=== PATIENT | male | born 1985 | race African-American/Black ===

== ENCOUNTER 2020-05-04 11:22 | Inpatient (IN) | payer OTHER ==
[2020-05-04 11:56] LABS: #Basophils 0.1 thou/uL (0.0-0.2); #Lymphocytes 2.2 thou/uL (1.20-3.40); #Monocytes 0.7 thou/uL (0.11-0.59); #Neutrophils 5.4 thou/uL (1.40-6.50); %Basophils 0.7 % (0.0-1.0); %Eosinophils 0.3 % (0.0-10.0); %Lymphocytes 26.4 % (21.0-51.0); %Monocytes 8.1 % (0.0-10.0); %Neutrophils 64.5 % (42.0-75.0); Hemoglobin 16.6 g/dL (14.0-18.0); Mean Corpuscular Volume 88.7 fL (78.0-98.0); Mean Platelet Volume 6.5 fL (7.4-10.4); Platelet Count 362 thou/uL (130-400); RBC Distribution Width 10.7 % (11.5-14.5); Red Blood Cell (RBC) Count 5.18 mill/uL (4.70-6.10); White Blood Cell (WBC) Count 8.4 thou/uL (4.8-10.8)
[2020-05-04] MEDS ORDERED: Magnesium 2 GM/50 ML BAG (IN WATER) ONE (12:17)
[2020-05-04 12:34] LABS: Actual Bicarbonate (HCO3v) 28 mEq/L (22-28); Analyzer IN Cardio ER; Base Excess 4.4 mEq/L (-2.0 to +3.0); Calcium, Ionized (venous) 1.16 mmol/L (1.16-1.32); Chloride (VBG) 82 mmol/L (98-106); Hemoglobin (Hb) 16.9 g/dL (13.2-17.3); Potassium (VBG) 2.88 mmol/L (3.70-5.30); Sodium 122.4 mmol/L (133-146); pH (venous) 7.49 (7.32-7.43)
[2020-05-04 12:35] LABS: ALT (SGPT) 17 U/L (8-55); AST (SGOT) 14 U/L (5-34); Albumin 4.8 g/dL (3.5-5.0); Alkaline Phosphatase 86 U/L (40-110); Anion Gap 19 mmol/L (10-20); BUN (Urea Nitrogen) 16 mg/dL (8.9-20.6); Bilirubin, Total 0.9 mg/dL (0.2-1.2); Calc. Creatinine Clearance 0 mL/min (70-130); Calcium 10.3 mg/dL (7.8-10.44); Carbon Dioxide 25 mmol/L (22-29); Chloride 81 mmol/L (98-107); Globulin 3.2 g/dL (2.4-3.5); Glucose 198 mg/dL (70-105); Lipase 99 U/L (8-78); Sodium 122 mmol/L (136-145)
[2020-05-04] MEDS ORDERED: Potassium Chloride 20 MEQ/100 ML PREMIX BAG ONE (12:58)
[2020-05-04] MEDS ORDERED: Potassium Chloride 20 MEQ TAB ONE (12:58)
[2020-05-04] MEDS ORDERED: Dextrose 5% in Water 1,000 ML IV PRN (13:45)
[2020-05-04] MEDS ORDERED: Dextrose 50% Abboject 50 ML SYRINGE SLOW IVP PRN (13:45)
[2020-05-04] MEDS ORDERED: Insulin Regular 300 UNITS/3 ML VIAL SC PRN (13:45)
[2020-05-04] MEDS ORDERED: diphenhydrAMINE 12.5 MG/5 ML UDCUP PO PRN (14:43)
[2020-05-04] MEDS ORDERED: Sodium Chloride 0.9% 1,000 ML IV SCH ×5 (14:45→22:30)
[2020-05-04 15:18] LABS: Anion Gap 18 mmol/L (10-20); BUN (Urea Nitrogen) 14 mg/dL (8.9-20.6); Calc. Creatinine Clearance 0 mL/min (70-130); Calcium 9.1 mg/dL (7.8-10.44); Carbon Dioxide 25 mmol/L (22-29); Chloride 84 mmol/L (98-107); Glucose 206 mg/dL (70-105); Potassium 3.2 mmol/L (3.5-5.1); Sodium 124 mmol/L (136-145)
[2020-05-04 15:46] LABS: Bacteria/HPF None Seen HPF (None Seen); Bilirubin Negative (Negative); Blood, Urine Negative (Negative); Clarity Turbid (Clear); Glucose, Urine (Dipstick) 70 mg/dL (Negative); Ketone, Urine 20 mg/dL (Negative); Leukocyte Negative Leu/uL (Negative); Nitrite Negative (Negative); Protein, Urine (Dipstick) 50 mg/dL (Neg-Trace); RBC/HPF 0-3 HPF (0-3); Specific Gravity, Urine 1.029 (1.002-1.036); Squamous Epithelial 0-3 HPF (0-3)
[2020-05-04] MEDS ORDERED: Potassium Chloride 20 MEQ TAB PO SCH (16:30)
[2020-05-04] MEDS ORDERED: Acetaminophen 325 MG TAB PO PRN (16:40)
[2020-05-04] MEDS: Insulin Regular 300 UNITS/3 ML VIAL SC PRN ×2 (16:49→20:31)
[2020-05-04 16:51] LABS: Anion Gap 18 mmol/L (10-20); BUN (Urea Nitrogen) 14 mg/dL (8.9-20.6); Calc. Creatinine Clearance 117 mL/min (70-130); Calcium 9.1 mg/dL (7.8-10.44); Carbon Dioxide 24 mmol/L (22-29); Chloride 83 mmol/L (98-107); Glucose 265 mg/dL (70-105); Potassium 3.3 mmol/L (3.5-5.1); Sodium 122 mmol/L (136-145)
[2020-05-04 17:03] LABS: Hemoglobin A1c 10.4 % (4.0-6.0)
[2020-05-04] MEDS ORDERED: hydrALAZINE 20 MG/ML VIAL SLOW IVP PRN (17:54)
[2020-05-04 20:08] LABS: Anion Gap 17 mmol/L (10-20); BUN (Urea Nitrogen) 13 mg/dL (8.9-20.6); Calc. Creatinine Clearance 126 mL/min (70-130); Calcium 8.7 mg/dL (7.8-10.44); Carbon Dioxide 18 mmol/L (22-29); Chloride 89 mmol/L (98-107); Glucose 300 mg/dL (70-105); Potassium 3.9 mmol/L (3.5-5.1); Sodium 120 mmol/L (136-145)
[2020-05-04 23:25] LABS: Anion Gap 12 mmol/L (10-20); BUN (Urea Nitrogen) 11 mg/dL (8.9-20.6); Calc. Creatinine Clearance 120 mL/min (70-130); Carbon Dioxide 27 mmol/L (22-29); Chloride 90 mmol/L (98-107); Glucose 191 mg/dL (70-105); Potassium 3.4 mmol/L (3.5-5.1); Sodium 126 mmol/L (136-145)
[2020-05-05 03:39] LABS: #Eosinphils 0.1 thou/uL (0.0-0.7); #Lymphocytes 2.7 thou/uL (1.20-3.40); #Monocytes 0.8 thou/uL (0.11-0.59); #Neutrophils 5.4 thou/uL (1.40-6.50); %Basophils 0.5 % (0.0-1.0); %Eosinophils 0.6 % (0.0-10.0); %Lymphocytes 30.1 % (21.0-51.0); %Monocytes 9.1 % (0.0-10.0); %Neutrophils 59.7 % (42.0-75.0); Hemoglobin 14.6 g/dL (14.0-18.0); Mean Corpuscular HGB CONC 34.8 g/dL (32.0-36.0); Mean Corpuscular Volume 89.2 fL (78.0-98.0); Mean Platelet Volume 6.4 fL (7.4-10.4); Platelet Count 315 thou/uL (130-400); RBC Distribution Width 10.7 % (11.5-14.5)
[2020-05-05 04:05] LABS: Anion Gap 13 mmol/L (10-20); BUN (Urea Nitrogen) 9 mg/dL (8.9-20.6); Calc. Creatinine Clearance 153 mL/min (70-130); Calcium 8.7 mg/dL (7.8-10.44); Carbon Dioxide 24 mmol/L (22-29); Chloride 94 mmol/L (98-107); Glucose 160 mg/dL (70-105); Potassium 3.7 mmol/L (3.5-5.1); Sodium 127 mmol/L (136-145)
[2020-05-05] MEDS: Insulin Regular 300 UNITS/3 ML VIAL SC PRN ×2 (05:46→13:01)
[2020-05-05] MEDS: Sodium Chloride 0.9% 1,000 ML IV SCH ×2 (07:20→17:30)
[2020-05-05 08:53] LABS: Anion Gap 13 mmol/L (10-20); BUN (Urea Nitrogen) 8 mg/dL (8.9-20.6); Calc. Creatinine Clearance 128 mL/min (70-130); Calcium 8.7 mg/dL (7.8-10.44); Carbon Dioxide 24 mmol/L (22-29); Chloride 94 mmol/L (98-107); Glucose 266 mg/dL (70-105); Potassium 3.6 mmol/L (3.5-5.1); Sodium 127 mmol/L (136-145)
[2020-05-05] MEDS ORDERED: Insulin Glargine 10 UNITS in Pre-Filled Syringe SC SCH (09:00)
[2020-05-05] MEDS: Lisinopril 10 MG TAB PO SCH (09:31)
[2020-05-05 14:10] VITALS: BMI 28.0
[2020-05-05 14:56] LABS: Anion Gap 12 mmol/L (10-20); BUN (Urea Nitrogen) 8 mg/dL (8.9-20.6); Calc. Creatinine Clearance 128 mL/min (70-130); Calcium 8.5 mg/dL (7.8-10.44); Carbon Dioxide 26 mmol/L (22-29); Chloride 93 mmol/L (98-107); Glucose 305 mg/dL (70-105); Potassium 3.7 mmol/L (3.5-5.1); Sodium 127 mmol/L (136-145)
[2020-05-05 21:03] LABS: Anion Gap 15 mmol/L (10-20); BUN (Urea Nitrogen) 8 mg/dL (8.9-20.6); Calc. Creatinine Clearance 149 mL/min (70-130); Calcium 8.2 mg/dL (7.8-10.44); Carbon Dioxide 18 mmol/L (22-29); Chloride 96 mmol/L (98-107); Glucose 221 mg/dL (70-105); Potassium 4.1 mmol/L (3.5-5.1); Sodium 125 mmol/L (136-145)
[2020-05-05] MEDS: HumaLOG 300 UNITS/3 ML VIAL SC PRN (23:06)
[2020-05-06] MEDS: Sodium Chloride 0.9% 1,000 ML IV SCH ×3 (01:39→16:56)
[2020-05-06 02:16] LABS: Anion Gap 11 mmol/L (10-20); BUN (Urea Nitrogen) 8 mg/dL (8.9-20.6); Calc. Creatinine Clearance 149 mL/min (70-130); Calcium 8.1 mg/dL (7.8-10.44); Carbon Dioxide 23 mmol/L (22-29); Chloride 95 mmol/L (98-107); Glucose 280 mg/dL (70-105); Potassium 3.4 mmol/L (3.5-5.1); Sodium 126 mmol/L (136-145)
[2020-05-06] MEDS: HumaLOG 300 UNITS/3 ML VIAL SC PRN ×3 (05:40→20:41)
[2020-05-06] MEDS ORDERED: Insulin Glargine 25 UNITS in Pre-Filled Syringe 1 EACH SC SCH (09:00)
[2020-05-06] MEDS ORDERED: Metoclopramide HCl 10 MG TAB PO SCH (09:30)
[2020-05-06] MEDS: Lisinopril 10 MG TAB PO SCH (09:33)
[2020-05-06 10:49] LABS: Phosphorus 2.5 mg/dL (2.3-4.7)
[2020-05-06 10:50] LABS: Anion Gap 11 mmol/L (10-20); BUN (Urea Nitrogen) 7 mg/dL (8.9-20.6); Calc. Creatinine Clearance 154 mL/min (70-130); Calcium 8.4 mg/dL (7.8-10.44); Carbon Dioxide 23 mmol/L (22-29); Chloride 99 mmol/L (98-107); Glucose 238 mg/dL (70-105); Potassium 3.9 mmol/L (3.5-5.1); Sodium 129 mmol/L (136-145)
[2020-05-06] MEDS: Metoclopramide HCl 10 MG TAB PO SCH ×2 (15:49→20:13)
[2020-05-06 16:50] LABS: Anion Gap 14 mmol/L (10-20); BUN (Urea Nitrogen) 7 mg/dL (8.9-20.6); Calc. Creatinine Clearance 152 mL/min (70-130); Calcium 8.9 mg/dL (7.8-10.44); Carbon Dioxide 24 mmol/L (22-29); Chloride 98 mmol/L (98-107); Glucose 86 mg/dL (70-105); Potassium 3.8 mmol/L (3.5-5.1); Sodium 132 mmol/L (136-145)
[2020-05-06 17:11] LABS: Free T4 (Free Thyroxine) 1.33 ng/dL (0.70-1.48)
[2020-05-07] MEDS: Sodium Chloride 0.9% 1,000 ML IV SCH ×2 (00:28→02:11)
[2020-05-07] MEDS: HumaLOG 300 UNITS/3 ML VIAL SC PRN ×2 (05:51→11:13)
[2020-05-07] MEDS ORDERED: Lantus 1000 UNITS/10 ML VIAL SC SCH ×2 (09:00)
[2020-05-07] MEDS: Metoclopramide HCl 10 MG TAB PO SCH (09:59)
[2020-05-07 11:09] VITALS: BP 131/70; TEMP 98
== END 2020-05-07 13:20 | disposition home or self-care (01) | DRG 74 ==
LOC: ERS 11:22 → ERHOLD 13:45 → IMCU/EMU 15:44 → 2NO 05-05 15:56
PROVIDERS: ADMIT Student in an Organized Health Care Education/Training Program; ATTEND Student in an Organized Health Care Education/Training Program
DX: E10.43 Type 1 diabetes mellitus with diabetic autonomic (poly)neuropathy (principal); E87.1 Hypo-osmolality and hyponatremia; K31.84 Gastroparesis; Z96.41 Presence of insulin pump (external) (internal); I10 Essential (primary) hypertension; E86.0 Dehydration; E87.6 Hypokalemia; I45.81 Long QT syndrome; Z91.012 Allergy to eggs; Z79.899 Other long term (current) drug therapy; Z91.010 Allergy to peanuts; Z88.2 Allergy status to sulfonamides; Z88.1 Allergy status to other antibiotic agents
CPT/HCPCS: 36415; 36416; 71045; 80048; 80053; 81003; 81015; 82010; 82436; 82805; 83036; 83690; 83735; 83930; 83935; 84100; 84300; 84439; 84443; 84481; 84484; 85025; 93005; 93010; 96365; 96366; 96368; J1815; J3475; J3480

== ENCOUNTER 2020-05-23 10:33 | Emergency (ER) | payer MEDICAID, OTHER ==
[2020-05-23] MEDS ORDERED: Ondansetron PF 4 MG/2 ML Vial ONE (11:19)
[2020-05-23] MEDS ORDERED: Famotidine/PF 20 mg/2ml Vial ONE (11:19)
[2020-05-23] MEDS ORDERED: Morphine 4 MG/ML VIAL ONE (11:19)
[2020-05-23 11:30] LABS: #Lymphocytes 0.7 thou/uL (1.20-3.40); #Monocytes 0.5 thou/uL (0.11-0.59); #Neutrophils 7.5 thou/uL (1.40-6.50); %Basophils 0.4 % (0.0-1.0); %Lymphocytes 8.5 % (21.0-51.0); %Monocytes 5.3 % (0.0-10.0); %Neutrophils 85.8 % (42.0-75.0); Hemoglobin 14.8 g/dL (14.0-18.0); Mean Corpuscular HGB CONC 33.9 g/dL (32.0-36.0); Mean Corpuscular Hemoglobin 31.2 pg (27.0-31.0); Mean Corpuscular Volume 92.1 fL (78.0-98.0); Mean Platelet Volume 6.7 fL (7.4-10.4); Platelet Count 336 thou/uL (130-400); RBC Distribution Width 12.6 % (11.5-14.5); Red Blood Cell (RBC) Count 4.75 mill/uL (4.70-6.10); White Blood Cell (WBC) Count 8.8 thou/uL (4.8-10.8)
[2020-05-23 11:34] LABS: Actual Bicarbonate (HCO3v) 16 mEq/L (22-28); Analyzer IN Cardio ER; Base Excess -1.2 mEq/L (-2.0 to +3.0); Chloride (VBG) 90 mmol/L (98-106); Hemoglobin (Hb) 16.6 g/dL (13.2-17.3); Potassium (VBG) 4.84 mmol/L (3.70-5.30); Sodium 129.6 mmol/L (133-146); pH (venous) 7.64 (7.32-7.43)
[2020-05-23 12:01] LABS: ALT (SGPT) 50 U/L (8-55); AST (SGOT) 16 U/L (5-34); Albumin 5.1 g/dL (3.5-5.0); Alkaline Phosphatase 92 U/L (40-110); Anion Gap 27 mmol/L (10-20); BUN (Urea Nitrogen) 29 mg/dL (8.9-20.6); Bilirubin, Total 1.1 mg/dL (0.2-1.2); Calc. Creatinine Clearance 0 mL/min (70-130); Calcium 10.1 mg/dL (7.8-10.44); Carbon Dioxide 23 mmol/L (22-29); Chloride 89 mmol/L (98-107); Globulin 3.3 g/dL (2.4-3.5); Glucose 523 mg/dL (70-105); Potassium 4.8 mmol/L (3.5-5.1); Protein, Total 8.4 g/dL (6.0-8.3); Sodium 134 mmol/L (136-145)
[2020-05-23] MEDS ORDERED: INSULIN REGULAR IN 0.9 % NACL 100 UNIT/100 ML BAG ONE (14:01)
[2020-05-23] MEDS ORDERED: Insulin Regular 300 UNITS/3 ML VIAL ONE (14:02)
[2020-05-23 14:57] LABS: Actual Bicarbonate (HCO3v) 23 mEq/L (22-28); Analyzer IN Cardio ER; Base Excess -0.4 mEq/L (-2.0 to +3.0); Calcium, Ionized (venous) 0.94 mmol/L (1.16-1.32); Chloride (VBG) 94 mmol/L (98-106); Hemoglobin (Hb) 16.1 g/dL (13.2-17.3); Potassium (VBG) 5.98 mmol/L (3.70-5.30); Sodium 132.7 mmol/L (133-146); pH (venous) 7.44 (7.32-7.43)
== END 2020-05-23 17:00 | disposition home or self-care (01) ==
LOC: ERS 10:33
DX: E10.65 Type 1 diabetes mellitus with hyperglycemia (principal); R11.2 Nausea with vomiting, unspecified; I10 Essential (primary) hypertension; Z79.82 Long term (current) use of aspirin; Z79.899 Other long term (current) drug therapy
CPT/HCPCS: 36415; 36416; 80053; 82805; 84484; 85025; 93005; 94760; 96374; 96375; J1815; J2270; J2405; S0028

== ENCOUNTER 2020-05-24 07:52 | Inpatient (IN) | payer OTHER ==
[2020-05-24] MEDS ORDERED: Aspirin Chewable 81 MG TAB ONE (08:12)
[2020-05-24] MEDS ORDERED: Metoclopramide HCl 10 MG/2 ML VIAL ONE (08:12)
[2020-05-24] MEDS ORDERED: Nitroglycerin 2% Ointment 1 INCH/1 GM Packet ONE (08:12)
[2020-05-24] MEDS ORDERED: Lidocaine Viscous Sol 2% 15 ml UD Cup ONE (09:32)
[2020-05-24] MEDS ORDERED: Mag-Al 1200 mg/1200 mg/30 ML UDCUP ONE (09:32)
[2020-05-24 09:37] LABS: #Basophils 0.1 thou/uL (0.0-0.2); #Lymphocytes 1.1 thou/uL (1.20-3.40); #Monocytes 0.5 thou/uL (0.11-0.59); #Neutrophils 6.3 thou/uL (1.40-6.50); %Basophils 0.7 % (0.0-1.0); %Eosinophils 0.1 % (0.0-10.0); %Lymphocytes 13.4 % (21.0-51.0); %Monocytes 6.3 % (0.0-10.0); %Neutrophils 79.4 % (42.0-75.0); Mean Corpuscular HGB CONC 34.1 g/dL (32.0-36.0); Mean Corpuscular Hemoglobin 31.5 pg (27.0-31.0); Mean Corpuscular Volume 92.4 fL (78.0-98.0); Mean Platelet Volume 6.5 fL (7.4-10.4); Platelet Count 319 thou/uL (130-400); RBC Distribution Width 12.1 % (11.5-14.5); Red Blood Cell (RBC) Count 4.44 mill/uL (4.70-6.10); White Blood Cell (WBC) Count 7.9 thou/uL (4.8-10.8)
[2020-05-24 09:41] LABS: Actual Bicarbonate (HCO3v) 21 mEq/L (22-28); Analyzer IN Cardio ER; Calcium, Ionized (venous) 1.13 mmol/L (1.16-1.32); Chloride (VBG) 96 mmol/L (98-106); Hemoglobin (Hb) 14.5 g/dL (13.2-17.3); Potassium (VBG) 4.13 mmol/L (3.70-5.30); Sodium 132.9 mmol/L (133-146); pH (venous) 7.41 (7.32-7.43)
[2020-05-24 10:00] LABS: ALT (SGPT) 33 U/L (8-55); AST (SGOT) 14 U/L (5-34); Albumin 4.5 g/dL (3.5-5.0); Alkaline Phosphatase 81 U/L (40-110); Anion Gap 20 mmol/L (10-20); BUN (Urea Nitrogen) 17 mg/dL (8.9-20.6); Bilirubin, Total 1.2 mg/dL (0.2-1.2); CK (CPK) 111 U/L (30-200); Calc. Creatinine Clearance 0 mL/min (70-130); Calcium 9.3 mg/dL (7.8-10.44); Carbon Dioxide 23 mmol/L (22-29); Chloride 94 mmol/L (98-107); Globulin 3.2 g/dL (2.4-3.5); Glucose 327 mg/dL (70-105); Lipase 12 U/L (8-78); Magnesium 2.2 mg/dL (1.6-2.6); Protein, Total 7.7 g/dL (6.0-8.3); Sodium 133 mmol/L (136-145)
[2020-05-24] MEDS ORDERED: Dextrose 5 %-0.45 % NaCl 1,000 ML IV PRN (10:50)
[2020-05-24] MEDS ORDERED: Ondansetron PF 4 MG/2 ML Vial IVP PRN (10:50)
[2020-05-24] MEDS ORDERED: Ondansetron ODT 4 MG TAB PO PRN (10:50)
[2020-05-24] MEDS ORDERED: NS 0.9% w/ 20 MEQ KCL 1,000 ML IV PRN ×2 (10:50)
[2020-05-24] MEDS ORDERED: Sodium Chloride 0.9% 1,000 ML IV PRN ×4 (10:50)
[2020-05-24] MEDS ORDERED: D5 1/2 NS w/20 mEq KCL 1,000 ML IV PRN (10:50)
[2020-05-24] MEDS ORDERED: Acetaminophen 325 MG TAB PO PRN (10:50)
[2020-05-24] MEDS ORDERED: Electrolyte Replacement Protocol IVPB PRN (10:50)
[2020-05-24] MEDS ORDERED: HUMULIN R 100 UNITS in Sodium Chloride 0.9% 100 ML IVPB SCH (11:00)
[2020-05-24] MEDS ORDERED: Insulin Regular 300 UNITS/3 ML VIAL IVP SCH (11:00)
[2020-05-24 11:06] LABS: Bilirubin Negative (Negative); Blood, Urine Negative (Negative); Clarity Clear (Clear); Glucose, Urine (Dipstick) Greater than 1000 mg/dL (Negative); Ketone, Urine Greater than 150 mg/dL (Negative); Leukocyte Negative Leu/uL (Negative); Nitrite Negative (Negative); Protein, Urine (Dipstick) 20 mg/dL (Neg-Trace); Specific Gravity, Urine 1.046 (1.002-1.036); Urobilinogen Normal mg/dL (Less than 2); pH, Urine 5.5 (5.0-9.0)
[2020-05-24 11:42] LABS: Anion Gap 24 mmol/L (10-20); BUN (Urea Nitrogen) 18 mg/dL (8.9-20.6); Calc. Creatinine Clearance 0 mL/min (70-130); Calcium 8.9 mg/dL (7.8-10.44); Carbon Dioxide 15 mmol/L (22-29); Chloride 98 mmol/L (98-107); Glucose 300 mg/dL (70-105); Potassium 4.8 mmol/L (3.5-5.1); Sodium 132 mmol/L (136-145)
[2020-05-24] MEDS ORDERED: NS 0.9% w/ 20 MEQ KCL 0 ML ONE (11:43)
[2020-05-24] MEDS ORDERED: INSULIN REGULAR IN 0.9 % NACL 100 UNIT/100 ML BAG ONE (11:43)
[2020-05-24] MEDS ORDERED: Insulin Regular 300 UNITS/3 ML VIAL ONE (11:43)
[2020-05-24] MEDS ORDERED: NS 0.9% w/ 20 MEQ KCL 1,000 ML ONE (11:45)
[2020-05-24 13:52] VITALS: BMI 29.3
[2020-05-24] MEDS ORDERED: Metoclopramide HCl 10 MG TAB PO SCH (15:00)
[2020-05-24 15:30] LABS: Anion Gap 20 mmol/L (10-20); BUN (Urea Nitrogen) 16 mg/dL (8.9-20.6); Calc. Creatinine Clearance 154 mL/min (70-130); Calcium 8.6 mg/dL (7.8-10.44); Carbon Dioxide 16 mmol/L (22-29); Chloride 102 mmol/L (98-107); Glucose 167 mg/dL (70-105); Potassium 4.7 mmol/L (3.5-5.1); Sodium 133 mmol/L (136-145)
[2020-05-24] MEDS: Metoclopramide HCl 10 MG/2 ML VIAL IVP SCH ×2 (15:48→22:03)
[2020-05-24] MEDS ORDERED: hydrALAZINE 20 MG/ML VIAL SLOW IVP PRN (16:17)
[2020-05-24 19:53] LABS: Anion Gap 17 mmol/L (10-20); BUN (Urea Nitrogen) 12 mg/dL (8.9-20.6); Calc. Creatinine Clearance 161 mL/min (70-130); Calcium 8.5 mg/dL (7.8-10.44); Carbon Dioxide 20 mmol/L (22-29); Chloride 103 mmol/L (98-107); Glucose 229 mg/dL (70-105); Potassium 4.7 mmol/L (3.5-5.1); Sodium 135 mmol/L (136-145)
[2020-05-24] MEDS: Gabapentin 100 MG CAP PO SCH (20:28)
[2020-05-24] MEDS: Lantus 1000 UNITS/10 ML VIAL SC SCH (20:31)
[2020-05-25] LABS: Anion Gap 17 mmol/L (10-20); BUN (Urea Nitrogen) 11 mg/dL (8.9-20.6); Calc. Creatinine Clearance 172 mL/min (70-130); Calcium 8.5 mg/dL (7.8-10.44); Carbon Dioxide 17 mmol/L (22-29); Chloride 103 mmol/L (98-107); Glucose 142 mg/dL (70-105); Sodium 133 mmol/L (136-145)
[2020-05-25 00:24] LABS: SARS-CoV-2 PCR by NAA Not Detected (NotDetected)
[2020-05-25] MEDS ORDERED: Dextrose 5% in Water 1,000 ML IV PRN (03:05)
[2020-05-25] MEDS ORDERED: Insulin Regular 300 UNITS/3 ML VIAL SC PRN (03:05)
[2020-05-25] MEDS ORDERED: Dextrose 50% Abboject 50 ML SYRINGE SLOW IVP PRN (03:05)
[2020-05-25 03:32] LABS: #Basophils 0.1 thou/uL (0.0-0.2); #Lymphocytes 1.2 thou/uL (1.20-3.40); #Monocytes 0.7 thou/uL (0.11-0.59); #Neutrophils 5.1 thou/uL (1.40-6.50); %Basophils 0.9 % (0.0-1.0); %Eosinophils 0.1 % (0.0-10.0); %Lymphocytes 16.7 % (21.0-51.0); %Monocytes 10.2 % (0.0-10.0); Hemoglobin 14.3 g/dL (14.0-18.0); Mean Corpuscular HGB CONC 36.6 g/dL (32.0-36.0); Mean Corpuscular Volume 93.1 fL (78.0-98.0); Mean Platelet Volume 6.5 fL (7.4-10.4); Platelet Count 273 thou/uL (130-400); Red Blood Cell (RBC) Count 4.19 mill/uL (4.70-6.10); White Blood Cell (WBC) Count 7.1 thou/uL (4.8-10.8)
[2020-05-25 03:47] LABS: Anion Gap 14 mmol/L (10-20); BUN (Urea Nitrogen) 10 mg/dL (8.9-20.6); Calc. Creatinine Clearance 163 mL/min (70-130); Calcium 8.8 mg/dL (7.8-10.44); Carbon Dioxide 21 mmol/L (22-29); Chloride 103 mmol/L (98-107); Glucose 148 mg/dL (70-105); Potassium 4.1 mmol/L (3.5-5.1); Sodium 134 mmol/L (136-145)
[2020-05-25] MEDS: Metoclopramide HCl 10 MG/2 ML VIAL IVP SCH ×3 (05:50→22:44)
[2020-05-25] MEDS: Gabapentin 100 MG CAP PO SCH ×2 (08:59→22:43)
[2020-05-25] MEDS: Lisinopril/Hydrochlorothiazide 10 mg/12.5 mg Tablet PO SCH (08:59)
[2020-05-25] MEDS: HumaLOG 300 UNITS/3 ML VIAL SC PRN ×2 (11:31→17:41)
[2020-05-25 15:24] LABS: Anion Gap 16 mmol/L (10-20); BUN (Urea Nitrogen) 10 mg/dL (8.9-20.6); Calc. Creatinine Clearance 140 mL/min (70-130); Calcium 9.4 mg/dL (7.8-10.44); Carbon Dioxide 21 mmol/L (22-29); Chloride 96 mmol/L (98-107); Glucose 202 mg/dL (70-105); Potassium 3.5 mmol/L (3.5-5.1); Sodium 129 mmol/L (136-145)
[2020-05-25] MEDS: Lantus 1000 UNITS/10 ML VIAL SC SCH (22:45)
[2020-05-26 06:03] LABS: #Basophils 0.1 thou/uL (0.0-0.2); #Eosinphils 0.1 thou/uL (0.0-0.7); #Lymphocytes 2.7 thou/uL (1.20-3.40); #Monocytes 0.7 thou/uL (0.11-0.59); %Basophils 1.2 % (0.0-1.0); %Eosinophils 1.4 % (0.0-10.0); %Lymphocytes 35.2 % (21.0-51.0); %Monocytes 9.5 % (0.0-10.0); %Neutrophils 52.6 % (42.0-75.0); Hemoglobin 14.9 g/dL (14.0-18.0); Mean Corpuscular HGB CONC 35.1 g/dL (32.0-36.0); Mean Corpuscular Hemoglobin 32.5 pg (27.0-31.0); Mean Corpuscular Volume 92.5 fL (78.0-98.0); Mean Platelet Volume 6.4 fL (7.4-10.4); Platelet Count 330 thou/uL (130-400); RBC Distribution Width 12.1 % (11.5-14.5); White Blood Cell (WBC) Count 7.5 thou/uL (4.8-10.8)
[2020-05-26] MEDS: Metoclopramide HCl 10 MG/2 ML VIAL IVP SCH (06:04)
[2020-05-26 06:18] LABS: Anion Gap 12 mmol/L (10-20); BUN (Urea Nitrogen) 10 mg/dL (8.9-20.6); Calc. Creatinine Clearance 148 mL/min (70-130); Calcium 9.1 mg/dL (7.8-10.44); Carbon Dioxide 26 mmol/L (22-29); Chloride 96 mmol/L (98-107); Glucose 193 mg/dL (70-105); Potassium 3.7 mmol/L (3.5-5.1); Sodium 130 mmol/L (136-145)
[2020-05-26] MEDS: Gabapentin 100 MG CAP PO SCH (08:58)
[2020-05-26] MEDS: Lisinopril/Hydrochlorothiazide 10 mg/12.5 mg Tablet PO SCH (08:59)
[2020-05-26] MEDS ORDERED: Amlodipine 5 MG TAB PO SCH (09:00)
[2020-05-26 17:17] VITALS: BP 137/87; TEMP 98.8
== END 2020-05-26 18:11 | disposition home or self-care (01) | DRG 638 ==
LOC: ERS 07:52 → ERHOLD 10:21 → OBSVTOIN 10:49 → IMCU/EMU 13:08 → T4-A 05-25 12:38
PROVIDERS: ADMIT Family Medicine; ATTEND Family Medicine
DX: E10.10 Type 1 diabetes mellitus with ketoacidosis without coma (principal); E87.1 Hypo-osmolality and hyponatremia; E10.43 Type 1 diabetes mellitus with diabetic autonomic (poly)neuropathy; K31.84 Gastroparesis; I10 Essential (primary) hypertension; E02 Subclinical iodine-deficiency hypothyroidism; Z20.822 Contact with and (suspected) exposure to COVID-19; Z91.012 Allergy to eggs; Z91.010 Allergy to peanuts; Z88.2 Allergy status to sulfonamides; Z91.018 Allergy to other foods; Z79.82 Long term (current) use of aspirin; Z79.4 Long term (current) use of insulin; Z79.899 Other long term (current) drug therapy; Z91.14 Patient's other noncompliance with medication regimen
CPT/HCPCS: 36415; 36416; 71045; 80048; 80053; 81003; 82010; 82550; 82805; 83605; 83690; 83735; 84484; 85025; 87635; 93005; 93010; 96374; J0360; J1815; J2405; J2765; J3480; U0003; U0005

== ENCOUNTER 2020-06-26 16:21 | Inpatient (IN) | payer OTHER, SELFPAY ==
[2020-06-26] MEDS ORDERED: Morphine 4 MG/ML VIAL ONE (16:51)
[2020-06-26 17:16] LABS: Actual Bicarbonate (HCO3v) 17 mEq/L (22-28); Analyzer IN Cardio ER; Base Excess 0.6 mEq/L (-2.0 to +3.0); Calcium, Ionized (venous) 1.04 mmol/L (1.16-1.32); Chloride (VBG) 98 mmol/L (98-106); Hemoglobin (Hb) 14.9 g/dL (13.2-17.3); Potassium (VBG) 3.62 mmol/L (3.70-5.30); Sodium 131.3 mmol/L (133-146); pH (venous) 7.71 (7.32-7.43)
[2020-06-26] MEDS ORDERED: Ondansetron PF 4 MG/2 ML Vial ONE (17:16)
[2020-06-26 17:17] LABS: #Lymphocytes 1.3 thou/uL (1.20-3.40); #Monocytes 0.6 thou/uL (0.11-0.59); #Neutrophils 5.3 thou/uL (1.40-6.50); %Basophils 0.4 % (0.0-1.0); %Eosinophils 0.3 % (0.0-10.0); %Lymphocytes 17.6 % (21.0-51.0); %Monocytes 7.9 % (0.0-10.0); %Neutrophils 73.9 % (42.0-75.0); Hemoglobin 14.2 g/dL (14.0-18.0); Mean Corpuscular HGB CONC 31.8 g/dL (32.0-36.0); Mean Corpuscular Hemoglobin 29.6 pg (27.0-31.0); Mean Corpuscular Volume 93.2 fL (78.0-98.0); Mean Platelet Volume 6.7 fL (7.4-10.4); Platelet Count 351 thou/uL (130-400); Red Blood Cell (RBC) Count 4.79 mill/uL (4.70-6.10); White Blood Cell (WBC) Count 7.1 thou/uL (4.8-10.8)
[2020-06-26 17:35] LABS: ALT (SGPT) 59 U/L (8-55); AST (SGOT) 32 U/L (5-34); Albumin 4.9 g/dL (3.5-5.0); Alkaline Phosphatase 84 U/L (40-110); Anion Gap 20 mmol/L (10-20); BUN (Urea Nitrogen) 19 mg/dL (8.9-20.6); Bilirubin, Total 1.3 mg/dL (0.2-1.2); Calc. Creatinine Clearance 0 mL/min (70-130); Calcium 10.9 mg/dL (7.8-10.44); Carbon Dioxide 20 mmol/L (22-29); Chloride 98 mmol/L (98-107); Globulin 3.7 g/dL (2.4-3.5); Glucose 222 mg/dL (70-105); Lipase 14 U/L (8-78); Magnesium 1.9 mg/dL (1.6-2.6); Potassium 3.7 mmol/L (3.5-5.1); Protein, Total 8.6 g/dL (6.0-8.3); Sodium 134 mmol/L (136-145)
[2020-06-26 17:41] LABS: Phosphorus 1.8 mg/dL (2.3-4.7)
[2020-06-26] MEDS ORDERED: K-Phos Neutral 250 MG TAB PO SCH (18:30)
[2020-06-26 18:59] LABS: Bacteria/HPF None Seen HPF (None Seen); Bilirubin Negative (Negative); Blood, Urine Negative (Negative); Clarity Clear (Clear); Glucose, Urine (Dipstick) 30 mg/dL (Negative); Ketone, Urine 100 mg/dL (Negative); Leukocyte Negative Leu/uL (Negative); Nitrite Negative (Negative); Protein, Urine (Dipstick) 50 mg/dL (Neg-Trace); RBC/HPF None Seen HPF (0-3); Specific Gravity, Urine 1.033 (1.002-1.036); Squamous Epithelial 0-3 HPF (0-3); Urobilinogen 3 mg/dL (Less than 2); WBC/HPF 0-3 HPF (0-3)
[2020-06-26] MEDS ORDERED: INSULIN REGULAR IN 0.9 % NACL 100 UNIT/100 ML BAG ONE (19:27)
[2020-06-26] MEDS ORDERED: D5 1/2 NS w/40 mEq KCL 1,000 ML IV SCH (19:30)
[2020-06-26] MEDS ORDERED: Zolpidem Tartrate 5 MG TAB PO PRN (20:05)
[2020-06-26] MEDS ORDERED: Acetaminophen 325 MG TAB PO PRN (20:05)
[2020-06-26] MEDS ORDERED: Guaifenesin DM 100-10/5 ML UDCUP PO PRN (20:05)
[2020-06-26] MEDS ORDERED: Calcium Carbonate 500 MG ChewTAB PO PRN (20:05)
[2020-06-26] MEDS ORDERED: Ondansetron ODT 4 MG TAB PO PRN (20:05)
[2020-06-26] MEDS ORDERED: Bisacodyl 10 MG SUPP PR PRN (20:05)
[2020-06-26] MEDS ORDERED: Loperamide HCl 2 MG CAP PO PRN (20:05)
[2020-06-26] MEDS ORDERED: Senokot S 8.6-50 MG TAB PO PRN (20:05)
[2020-06-26] MEDS ORDERED: HYDROcodone/Acetaminophen 5/325 mg Tablet PO PRN (20:05)
[2020-06-26] MEDS ORDERED: Sodium Chloride 0.9% 1,000 ML IV PRN ×4 (20:07)
[2020-06-26] MEDS ORDERED: NS 0.9% w/ 20 MEQ KCL 1,000 ML IV PRN ×2 (20:07)
[2020-06-26] MEDS ORDERED: D5 1/2 NS w/20 mEq KCL 1,000 ML IV PRN (20:07)
[2020-06-26] MEDS ORDERED: Electrolyte Replacement Protocol 1 EACH IVPB PRN (20:07)
[2020-06-26] MEDS ORDERED: Dextrose 5 %-0.45 % NaCl 1,000 ML IV PRN (20:07)
[2020-06-26] MEDS ORDERED: HUMULIN R 100 UNITS in Sodium Chloride 0.9% 100 ML IVPB SCH (20:15)
[2020-06-26 21:01] LABS: Anion Gap 15 mmol/L (10-20); BUN (Urea Nitrogen) 17 mg/dL (8.9-20.6); Calc. Creatinine Clearance 0 mL/min (70-130); Calcium 9.9 mg/dL (7.8-10.44); Carbon Dioxide 24 mmol/L (22-29); Chloride 100 mmol/L (98-107); Glucose 208 mg/dL (70-105); Potassium 4.4 mmol/L (3.5-5.1); Sodium 135 mmol/L (136-145)
[2020-06-26] MEDS ORDERED: HumaLOG 300 UNITS/3 ML VIAL SC PRN (21:31)
[2020-06-26] MEDS ORDERED: Dextrose 5% in Water 1,000 ML IV PRN (21:31)
[2020-06-26] MEDS ORDERED: Dextrose 50% Abboject 50 ML SYRINGE SLOW IVP PRN (21:31)
[2020-06-27 00:29] LABS: Troponin I Less than 0.010 ng/mL (< 0.028)
[2020-06-27 01:30] LABS: Anion Gap 13 mmol/L (10-20); BUN (Urea Nitrogen) 13 mg/dL (8.9-20.6); Calc. Creatinine Clearance 0 mL/min (70-130); Carbon Dioxide 23 mmol/L (22-29); Chloride 103 mmol/L (98-107); Glucose 145 mg/dL (70-105); Sodium 135 mmol/L (136-145)
[2020-06-27] MEDS: Sodium Chloride 0.45% 1,000 ML IV SCH ×5 (01:45→20:31)
[2020-06-27 01:46] VITALS: BMI 36.0
[2020-06-27 01:54] LABS: SARS-CoV-2 PCR by NAA Not Detected (NotDetected)
[2020-06-27] MEDS: Famotidine 20 MG TAB PO SCH ×3 (01:54→20:31)
[2020-06-27 02:15] LABS: Calcium 9.5 mg/dL (7.8-10.44)
[2020-06-27] MEDS: Ondansetron PF 4 MG/2 ML Vial IVP PRN ×3 (05:13→20:35)
[2020-06-27 05:50] LABS: #Lymphocytes 1.2 thou/uL (1.20-3.40); #Monocytes 0.6 thou/uL (0.11-0.59); #Neutrophils 5.4 thou/uL (1.40-6.50); %Basophils 0.6 % (0.0-1.0); %Eosinophils 0.6 % (0.0-10.0); %Monocytes 7.9 % (0.0-10.0); %Neutrophils 73.9 % (42.0-75.0); Hemoglobin 13.8 g/dL (14.0-18.0); Mean Corpuscular HGB CONC 32.6 g/dL (32.0-36.0); Mean Corpuscular Hemoglobin 30.8 pg (27.0-31.0); Mean Corpuscular Volume 94.6 fL (78.0-98.0); Platelet Count 289 thou/uL (130-400); RBC Distribution Width 12.9 % (11.5-14.5); Red Blood Cell (RBC) Count 4.47 mill/uL (4.70-6.10); White Blood Cell (WBC) Count 7.3 thou/uL (4.8-10.8)
[2020-06-27 05:59] LABS: Anion Gap 15 mmol/L (10-20); BUN (Urea Nitrogen) 12 mg/dL (8.9-20.6); Calc. Creatinine Clearance 155 mL/min (70-130); Calcium 9.2 mg/dL (7.8-10.44); Carbon Dioxide 21 mmol/L (22-29); Chloride 103 mmol/L (98-107); Glucose 160 mg/dL (70-105); Sodium 135 mmol/L (136-145)
[2020-06-27 06:23] LABS: Hemoglobin A1c 8.2 % (4.0-6.0)
[2020-06-27 06:25] LABS: ALT (SGPT) 41 U/L (8-55); AST (SGOT) 19 U/L (5-34); Albumin 4.3 g/dL (3.5-5.0); Alkaline Phosphatase 74 U/L (40-110); Anion Gap 15 mmol/L (10-20); BUN (Urea Nitrogen) 12 mg/dL (8.9-20.6); Bilirubin, Total 1.1 mg/dL (0.2-1.2); Calc. Creatinine Clearance 152 mL/min (70-130); Calcium 9.1 mg/dL (7.8-10.44); Carbon Dioxide 20 mmol/L (22-29); Chloride 103 mmol/L (98-107); Globulin 3.2 g/dL (2.4-3.5); Glucose 162 mg/dL (70-105); Phosphorus 3.7 mg/dL (2.3-4.7); Protein, Total 7.5 g/dL (6.0-8.3); Sodium 134 mmol/L (136-145)
[2020-06-27] MEDS: Metoclopramide HCl 10 MG TAB PO SCH ×3 (08:54→20:31)
[2020-06-27] MEDS: Gabapentin 100 MG CAP PO SCH ×2 (08:54→20:31)
[2020-06-27] MEDS: Enoxaparin Sodium 40 MG/0.4 ML SYRINGE SC SCH (08:55)
[2020-06-27] MEDS: Amlodipine 5 MG TAB PO SCH (08:55)
[2020-06-27] MEDS: HumaLOG 300 UNITS/3 ML VIAL SC SCH ×3 (08:56→18:00)
[2020-06-27] MEDS: Lisinopril/Hydrochlorothiazide 10 mg/12.5 mg Tablet PO SCH (10:56)
[2020-06-27] MEDS: HumaLOG 300 UNITS/3 ML VIAL SC PRN (18:01)
[2020-06-28] MEDS: Sodium Chloride 0.45% 1,000 ML IV SCH ×2 (05:57→15:57)
[2020-06-28] MEDS: Ondansetron PF 4 MG/2 ML Vial IVP PRN (06:00)
[2020-06-28] MEDS: HumaLOG 300 UNITS/3 ML VIAL SC PRN ×3 (06:02→20:02)
[2020-06-28 06:07] LABS: #Basophils 0.1 thou/uL (0.0-0.2); #Lymphocytes 1.6 thou/uL (1.20-3.40); #Monocytes 0.7 thou/uL (0.11-0.59); #Neutrophils 5.5 thou/uL (1.40-6.50); %Eosinophils 0.3 % (0.0-10.0); %Lymphocytes 20.6 % (21.0-51.0); %Monocytes 9.2 % (0.0-10.0); %Neutrophils 68.9 % (42.0-75.0); Hemoglobin 13.8 g/dL (14.0-18.0); Mean Corpuscular Hemoglobin 30.9 pg (27.0-31.0); Mean Corpuscular Volume 93.5 fL (78.0-98.0); Mean Platelet Volume 6.7 fL (7.4-10.4); Platelet Count 303 thou/uL (130-400); RBC Distribution Width 12.7 % (11.5-14.5); Red Blood Cell (RBC) Count 4.47 mill/uL (4.70-6.10); White Blood Cell (WBC) Count 7.9 thou/uL (4.8-10.8)
[2020-06-28 06:21] LABS: Anion Gap 18 mmol/L (10-20); BUN (Urea Nitrogen) 8 mg/dL (8.9-20.6); Calc. Creatinine Clearance 151 mL/min (70-130); Calcium 9.4 mg/dL (7.8-10.44); Carbon Dioxide 20 mmol/L (22-29); Chloride 101 mmol/L (98-107); Glucose 152 mg/dL (70-105); Potassium 3.7 mmol/L (3.5-5.1); Sodium 135 mmol/L (136-145)
[2020-06-28] MEDS: Lisinopril/Hydrochlorothiazide 10 mg/12.5 mg Tablet PO SCH (08:08)
[2020-06-28] MEDS: Gabapentin 100 MG CAP PO SCH ×2 (08:08→19:57)
[2020-06-28] MEDS: Metoclopramide HCl 10 MG TAB PO SCH ×2 (08:09→15:54)
[2020-06-28] MEDS: Famotidine 20 MG TAB PO SCH (08:09)
[2020-06-28] MEDS: Enoxaparin Sodium 40 MG/0.4 ML SYRINGE SC SCH (08:10)
[2020-06-28] MEDS: Amlodipine 5 MG TAB PO SCH (08:10)
[2020-06-28] MEDS: HumaLOG 300 UNITS/3 ML VIAL SC SCH ×2 (08:49→12:03)
[2020-06-28] MEDS ORDERED: Labetalol HCl 100 MG/20 ML VIAL SLOW IVP PRN (12:27)
[2020-06-28] MEDS ORDERED: hydrALAZINE 20 MG/ML VIAL SLOW IVP PRN (12:27)
[2020-06-28] MEDS ORDERED: Erythromycin Base 250 MG TAB PO SCH (14:00)
[2020-06-28] MEDS: Metoclopramide HCl 10 MG/2 ML VIAL IVP SCH (18:22)
[2020-06-28] MEDS: Pantoprazole 40 MG VIAL IVP SCH (20:03)
[2020-06-29] MEDS: Metoclopramide HCl 10 MG/2 ML VIAL IVP SCH ×4 (00:21→17:11)
[2020-06-29] MEDS: Sodium Chloride 0.45% 1,000 ML IV SCH ×4 (02:16→22:03)
[2020-06-29] MEDS: HumaLOG 300 UNITS/3 ML VIAL SC PRN ×3 (05:37→17:11)
[2020-06-29] MEDS: Lantus 1000 UNITS/10 ML VIAL SC SCH ×2 (06:12→08:27)
[2020-06-29] MEDS: Lisinopril/Hydrochlorothiazide 10 mg/12.5 mg Tablet PO SCH (08:20)
[2020-06-29] MEDS: Pantoprazole 40 MG VIAL IVP SCH ×2 (08:22→19:49)
[2020-06-29] MEDS: Gabapentin 100 MG CAP PO SCH ×2 (08:22→19:48)
[2020-06-29] MEDS: Enoxaparin Sodium 40 MG/0.4 ML SYRINGE SC SCH (08:22)
[2020-06-29] MEDS: Amlodipine 5 MG TAB PO SCH (08:22)
[2020-06-29 08:36] LABS: Anion Gap 17 mmol/L (10-20); BUN (Urea Nitrogen) 9 mg/dL (8.9-20.6); Calc. Creatinine Clearance 144 mL/min (70-130); Calcium 9.6 mg/dL (7.8-10.44); Carbon Dioxide 19 mmol/L (22-29); Chloride 103 mmol/L (98-107); Glucose 168 mg/dL (70-105); Potassium 4.6 mmol/L (3.5-5.1); Sodium 134 mmol/L (136-145)
[2020-06-30] MEDS: Metoclopramide HCl 10 MG/2 ML VIAL IVP SCH ×3 (00:03→11:52)
[2020-06-30] MEDS: HumaLOG 300 UNITS/3 ML VIAL SC PRN ×2 (05:40→11:52)
[2020-06-30 08:56] LABS: Anion Gap 16 mmol/L (10-20); BUN (Urea Nitrogen) 7 mg/dL (8.9-20.6); Calc. Creatinine Clearance 142 mL/min (70-130); Calcium 9.1 mg/dL (7.8-10.44); Carbon Dioxide 19 mmol/L (22-29); Chloride 98 mmol/L (98-107); Glucose 254 mg/dL (70-105); Magnesium 2.1 mg/dL (1.6-2.6); Phosphorus 2.7 mg/dL (2.3-4.7); Potassium 3.3 mmol/L (3.5-5.1); Sodium 130 mmol/L (136-145)
[2020-06-30] MEDS: Pantoprazole 40 MG VIAL IVP SCH (08:56)
[2020-06-30] MEDS: Gabapentin 100 MG CAP PO SCH (08:57)
[2020-06-30] MEDS: Amlodipine 5 MG TAB PO SCH (08:59)
[2020-06-30] MEDS: Enoxaparin Sodium 40 MG/0.4 ML SYRINGE SC SCH (08:59)
[2020-06-30] MEDS: Lisinopril/Hydrochlorothiazide 10 mg/12.5 mg Tablet PO SCH (09:00)
[2020-06-30] MEDS: Sodium Chloride 0.45% 1,000 ML IV SCH (09:01)
[2020-06-30] MEDS: Lantus 1000 UNITS/10 ML VIAL SC SCH (09:03)
[2020-06-30] MEDS ORDERED: Potassium Bicarbonate/Cit Ac 25 MEQ TAB PO SCH ×2 (10:00→12:00)
[2020-06-30] MEDS ORDERED: Potassium Chloride 20 MEQ TAB PO SCH (10:00)
[2020-06-30 19:37] VITALS: BP 142/89; TEMP 98.7
== END 2020-06-30 12:52 | disposition home or self-care (01) | DRG 638 ==
LOC: ERS 16:21 → T4-B 18:50
PROVIDERS: ADMIT Internal Medicine; ATTEND Internal Medicine
DX: E10.10 Type 1 diabetes mellitus with ketoacidosis without coma (principal); E87.1 Hypo-osmolality and hyponatremia; I10 Essential (primary) hypertension; E87.6 Hypokalemia; E83.39 Other disorders of phosphorus metabolism; E86.0 Dehydration; E66.9 Obesity, unspecified; R07.89 Other chest pain; E10.43 Type 1 diabetes mellitus with diabetic autonomic (poly)neuropathy; K31.84 Gastroparesis; R79.89 Other specified abnormal findings of blood chemistry; D53.9 Nutritional anemia, unspecified; Z20.822 Contact with and (suspected) exposure to COVID-19; Z91.012 Allergy to eggs; Z91.010 Allergy to peanuts; Z88.2 Allergy status to sulfonamides; Z79.4 Long term (current) use of insulin; Z68.36 Body mass index [BMI] 36.0-36.9, adult
CPT/HCPCS: 36415; 36416; 71045; 76705; 80048; 80053; 81003; 81015; 82010; 82805; 83036; 83690; 83735; 84100; 84484; 85025; 85379; 87040; 87635; 93005; 94760; 96365; 96366; 96368; 96375; C9113; J1650; J1815; J2270; J2405; J2765; J3480; Q0162; U0003; U0005

== ENCOUNTER 2020-11-11 07:56 | Inpatient (IN) | payer OTHER ==
[2020-11-11] MEDS ORDERED: Metoclopramide HCl 10 MG/2 ML VIAL ONE (08:35)
[2020-11-11] MEDS ORDERED: diphenhydrAMINE 50 MG/ML VIAL ONE (08:35)
[2020-11-11 08:56] LABS: #Basophils 0.1 thou/uL (0.0-0.2); #Lymphocytes 1.3 thou/uL (1.20-3.40); #Monocytes 0.7 thou/uL (0.11-0.59); #Neutrophils 11.1 thou/uL (1.40-6.50); %Basophils 0.4 % (0.0-1.0); %Eosinophils 0.1 % (0.0-10.0); %Lymphocytes 10.1 % (21.0-51.0); %Monocytes 5.1 % (0.0-10.0); %Neutrophils 84.3 % (42.0-75.0); Mean Corpuscular HGB CONC 32.2 g/dL (32.0-36.0); Mean Platelet Volume 7.1 fL (7.4-10.4); Platelet Count 326 thou/uL (130-400); RBC Distribution Width 12.7 % (11.5-14.5); Red Blood Cell (RBC) Count 5.51 mill/uL (4.70-6.10); White Blood Cell (WBC) Count 13.2 thou/uL (4.8-10.8)
[2020-11-11 09:23] LABS: ALT (SGPT) 61 U/L (8-55); AST (SGOT) 22 U/L (5-34); Alkaline Phosphatase 97 U/L (40-110); Anion Gap 25 mmol/L (10-20); BUN (Urea Nitrogen) 26 mg/dL (8.9-20.6); Bilirubin, Total 1.5 mg/dL (0.2-1.2); Calc. Creatinine Clearance 0 mL/min (70-130); Calcium 10.2 mg/dL (7.8-10.44); Carbon Dioxide 21 mmol/L (22-29); Chloride 94 mmol/L (98-107); Globulin 3.6 g/dL (2.4-3.5); Glucose 394 mg/dL (70-105); Potassium 3.7 mmol/L (3.5-5.1); Protein, Total 8.6 g/dL (6.0-8.3); Sodium 136 mmol/L (136-145)
[2020-11-11 09:32] LABS: Actual Bicarbonate (HCO3v) 20 mEq/L (22-28); Analyzer IN Cardio ER; Base Excess 0.7 mEq/L (-2.0 to +3.0); Calcium, Ionized (venous) 1.01 mmol/L (1.16-1.32); Chloride (VBG) 94 mmol/L (98-106); Hemoglobin (Hb) 16.8 g/dL (13.2-17.3); Sodium 133.1 mmol/L (133-146); pH (venous) 7.59 (7.32-7.43)
[2020-11-11] MEDS ORDERED: Potassium Chloride 20 MEQ TAB ONE ×2 (10:14→17:27)
[2020-11-11] MEDS ORDERED: NS 0.9% w/ 20 MEQ KCL 1,000 ML IV SCH (10:15)
[2020-11-11] MEDS ORDERED: Potassium Chloride 20 MEQ TAB PO SCH ×2 (10:15→16:00)
[2020-11-11] MEDS ORDERED: Insulin Regular 300 UNITS/3 ML VIAL ONE (10:16)
[2020-11-11] MEDS ORDERED: INSULIN REGULAR IN 0.9 % NACL 100 UNIT/100 ML BAG ONE (10:16)
[2020-11-11] MEDS ORDERED: Dextrose 5 %-0.45 % NaCl 1,000 ML IV PRN (10:44)
[2020-11-11] MEDS ORDERED: D5 1/2 NS w/20 mEq KCL 1,000 ML IV PRN (10:44)
[2020-11-11] MEDS ORDERED: Sodium Chloride 0.9% 1,000 ML IV PRN ×4 (10:44)
[2020-11-11] MEDS ORDERED: NS 0.9% w/ 20 MEQ KCL 1,000 ML IV PRN ×2 (10:44)
[2020-11-11] MEDS ORDERED: Electrolyte Replacement Protocol 1 EACH IVPB SCH (10:44)
[2020-11-11] MEDS ORDERED: HUMULIN R 100 UNITS in Sodium Chloride 0.9% 100 ML IVPB SCH (10:45)
[2020-11-11] MEDS ORDERED: Acetaminophen 325 MG TAB PO PRN (10:47)
[2020-11-11] MEDS ORDERED: Ondansetron ODT 4 MG TAB PO PRN (10:47)
[2020-11-11 11:09] LABS: Bacteria/HPF None Seen HPF (None Seen); Bilirubin Negative (Negative); Blood, Urine Negative (Negative); Clarity Clear (Clear); Glucose, Urine (Dipstick) Greater than 1000 mg/dL (Negative); Ketone, Urine 80 mg/dL (Negative); Leukocyte Negative Leu/uL (Negative); Nitrite Negative (Negative); Protein, Urine (Dipstick) 20 mg/dL (Neg-Trace); RBC/HPF 0-3 HPF (0-3); Specific Gravity, Urine 1.039 (1.002-1.036); Squamous Epithelial 0-3 HPF (0-3); Urobilinogen Normal mg/dL (Less than 2); WBC/HPF 0-3 HPF (0-3); pH, Urine 5.5 (5.0-9.0)
[2020-11-11] MEDS ORDERED: Lisinopril/Hydrochlorothiazide 20/25 mg Tablet PO SCH (11:15)
[2020-11-11] MEDS ORDERED: Gabapentin 100 MG CAP PO SCH ×2 (11:15→21:00)
[2020-11-11 12:43] LABS: Anion Gap 18 mmol/L (10-20); BUN (Urea Nitrogen) 22 mg/dL (8.9-20.6); Calc. Creatinine Clearance 0 mL/min (70-130); Calcium 9.7 mg/dL (7.8-10.44); Carbon Dioxide 23 mmol/L (22-29); Chloride 98 mmol/L (98-107); Glucose 308 mg/dL (70-105); Magnesium 1.9 mg/dL (1.6-2.6); Potassium 3.3 mmol/L (3.5-5.1); Sodium 136 mmol/L (136-145)
[2020-11-11] MEDS ORDERED: Magnesium 2 GM/50 ML 2 GM in Premix Bag 1 BAG IVPB SCH (13:00)
[2020-11-11] MEDS ORDERED: D5 1/2 NS w/20 mEq KCL 1,000 ML ONE (14:59)
[2020-11-11 15:33] LABS: Anion Gap 17 mmol/L (10-20); BUN (Urea Nitrogen) 18 mg/dL (8.9-20.6); Calc. Creatinine Clearance 0 mL/min (70-130); Calcium 9.7 mg/dL (7.8-10.44); Carbon Dioxide 25 mmol/L (22-29); Chloride 100 mmol/L (98-107); Glucose 136 mg/dL (70-105); Potassium 3.5 mmol/L (3.5-5.1); Sodium 138 mmol/L (136-145)
[2020-11-11 15:35] LABS: Troponin I Less than 0.010 ng/mL (< 0.028)
[2020-11-11] MEDS ORDERED: Electrolyte Replacement Protocol FS PRN (16:00)
[2020-11-11] MEDS ORDERED: Metoclopramide HCl 10 MG TAB ONE (17:27)
[2020-11-11] MEDS ORDERED: Magnesium 2 GM/50 ML BAG (IN WATER) ONE (17:27)
[2020-11-11] MEDS: Metoclopramide HCl 10 MG TAB PO SCH ×2 (17:37→21:55)
[2020-11-11] MEDS ORDERED: Dextrose 5% in Water 1,000 ML IV PRN (18:19)
[2020-11-11] MEDS ORDERED: Dextrose 50% Abboject 50 ML SYRINGE SLOW IVP PRN (18:19)
[2020-11-11] MEDS ORDERED: Lantus 1000 UNITS/10 ML VIAL SC SCH (18:30)
[2020-11-11] MEDS ORDERED: Ondansetron ODT 4 MG TAB ONE (18:49)
[2020-11-11 19:58] LABS: SARS-CoV-2 NAA Rapid Test Not Detected (NotDetected)
[2020-11-11] MEDS: HumaLOG 300 UNITS/3 ML VIAL SC PRN (21:54)
[2020-11-11 22:19] LABS: Calcium 8.9 mg/dL (7.8-10.44); Chloride 98 mmol/L (98-107); Sodium 131 mmol/L (136-145)
[2020-11-11 22:20] LABS: Glucose 290 mg/dL (70-105)
[2020-11-11 22:21] LABS: Anion Gap 21 mmol/L (10-20); Carbon Dioxide 18 mmol/L (22-29)
[2020-11-11 22:23] LABS: Calc. Creatinine Clearance 0 mL/min (70-130)
[2020-11-11 22:24] LABS: BUN (Urea Nitrogen) 15 mg/dL (8.9-20.6)
[2020-11-11 23:31] LABS: Potassium 3.8 mmol/L (3.5-5.1)
[2020-11-12 04:32] VITALS: BMI 35.9
[2020-11-12] MEDS: HumaLOG 300 UNITS/3 ML VIAL SC PRN ×4 (06:05→21:43)
[2020-11-12 07:34] LABS: #Basophils 0.1 thou/uL (0.0-0.2); #Lymphocytes 1.4 thou/uL (1.20-3.40); #Monocytes 0.7 thou/uL (0.11-0.59); #Neutrophils 9.8 thou/uL (1.40-6.50); %Basophils 0.5 % (0.0-1.0); %Eosinophils 0.2 % (0.0-10.0); %Lymphocytes 11.9 % (21.0-51.0); %Monocytes 6.1 % (0.0-10.0); %Neutrophils 81.3 % (42.0-75.0); Hemoglobin 14.4 g/dL (14.0-18.0); Mean Corpuscular HGB CONC 31.3 g/dL (32.0-36.0); Mean Corpuscular Hemoglobin 28.5 pg (27.0-31.0); Mean Platelet Volume 7.6 fL (7.4-10.4); Platelet Count 307 thou/uL (130-400); RBC Distribution Width 12.3 % (11.5-14.5); Red Blood Cell (RBC) Count 5.05 mill/uL (4.70-6.10)
[2020-11-12 07:38] LABS: Anion Gap 14 mmol/L (10-20); BUN (Urea Nitrogen) 17 mg/dL (8.9-20.6); Calc. Creatinine Clearance 152 mL/min (70-130); Calcium 9.3 mg/dL (7.8-10.44); Carbon Dioxide 26 mmol/L (22-29); Chloride 96 mmol/L (98-107); Glucose 310 mg/dL (70-105); Potassium 4.2 mmol/L (3.5-5.1); Sodium 132 mmol/L (136-145)
[2020-11-12] MEDS ORDERED: Amlodipine 5 MG TAB PO SCH (09:00)
[2020-11-12] MEDS ORDERED: Lisinopril/Hydrochlorothiazide 20/25 mg Tablet PO SCH (09:00)
[2020-11-12] MEDS: Metoclopramide HCl 10 MG TAB PO SCH ×3 (10:32→21:43)
[2020-11-12] MEDS: Enoxaparin Sodium 40 MG/0.4 ML SYRINGE SC SCH (10:33)
[2020-11-12] MEDS: Ondansetron PF 4 MG/2 ML Vial IVP PRN ×2 (10:47→18:34)
[2020-11-12] MEDS: Lantus 1000 UNITS/10 ML VIAL SC SCH ×2 (10:48→21:44)
[2020-11-12] MEDS ORDERED: hydrALAZINE 20 MG/ML VIAL SLOW IVP PRN (14:46)
[2020-11-12] MEDS ORDERED: Promethazine HCl 25 MG in Sodium Chloride 0.9% 50 ML IVPB PRN (15:33)
[2020-11-12] MEDS: HumaLOG 300 UNITS/3 ML VIAL SC SCH ×2 (15:45→21:44)
[2020-11-12] MEDS ORDERED: Amlodipine 10 MG TAB PO SCH (16:00)
[2020-11-13] MEDS: HumaLOG 300 UNITS/3 ML VIAL SC PRN ×2 (05:43→11:49)
[2020-11-13 06:59] LABS: Anion Gap 20 mmol/L (10-20); BUN (Urea Nitrogen) 16 mg/dL (8.9-20.6); Calc. Creatinine Clearance 144 mL/min (70-130); Calcium 9.4 mg/dL (7.8-10.44); Carbon Dioxide 23 mmol/L (22-29); Chloride 95 mmol/L (98-107); Glucose 239 mg/dL (70-105); Potassium 3.8 mmol/L (3.5-5.1); Sodium 134 mmol/L (136-145)
[2020-11-13] MEDS ORDERED: Amlodipine 10 MG TAB PO SCH (09:00)
[2020-11-13] MEDS: Ondansetron PF 4 MG/2 ML Vial IVP PRN (09:06)
[2020-11-13] MEDS: Metoclopramide HCl 10 MG TAB PO SCH (09:06)
[2020-11-13] MEDS: Lantus 1000 UNITS/10 ML VIAL SC SCH (09:07)
[2020-11-13] MEDS: Enoxaparin Sodium 40 MG/0.4 ML SYRINGE SC SCH (09:07)
[2020-11-13] MEDS: HumaLOG 300 UNITS/3 ML VIAL SC SCH (09:08)
[2020-11-13 11:53] VITALS: BP 155/108; TEMP 98.2
== END 2020-11-13 12:13 | disposition home or self-care (01) | DRG 638 ==
LOC: ERS 07:56 → ERHOLD 10:21 → SJJU 20:04
PROVIDERS: ADMIT Internal Medicine; ATTEND Internal Medicine
DX: E10.10 Type 1 diabetes mellitus with ketoacidosis without coma (principal); N17.9 Acute kidney failure, unspecified; E87.1 Hypo-osmolality and hyponatremia; I16.0 Hypertensive urgency; K21.9 Gastro-esophageal reflux disease without esophagitis; D72.829 Elevated white blood cell count, unspecified; E10.40 Type 1 diabetes mellitus with diabetic neuropathy, unspecified; E10.43 Type 1 diabetes mellitus with diabetic autonomic (poly)neuropathy; K31.84 Gastroparesis; Z20.822 Contact with and (suspected) exposure to COVID-19; Z91.012 Allergy to eggs; Z91.010 Allergy to peanuts; Z91.018 Allergy to other foods; Z88.2 Allergy status to sulfonamides; Z88.8 Allergy status to other drugs, medicaments and biological substances; Z79.4 Long term (current) use of insulin; Z79.899 Other long term (current) drug therapy; Z90.49 Acquired absence of other specified parts of digestive tract
CPT/HCPCS: 0240U; 36415; 36416; 70450; 71045; 76770; 80048; 80053; 81001; 82010; 82550; 82805; 83735; 84100; 84443; 84484; 85025; 93005; J0360; J1200; J1650; J1815; J2405; J2765; J3475; J3480; J7050; Q0162

== ENCOUNTER 2020-12-11 15:18 | Emergency (ER) | payer OTHER ==
[2020-12-11 17:16] LABS: Actual Bicarbonate (HCO3v) 23 mEq/L (22-28); Analyzer IN Cardio ER; Base Excess 1.2 mEq/L (-2.0 to +3.0); Calcium, Ionized (venous) 1.09 mmol/L (1.16-1.32); Chloride (VBG) 99 mmol/L (98-106); Hemoglobin (Hb) 16.1 g/dL (13.2-17.3); Potassium (VBG) 3.64 mmol/L (3.70-5.30); pH (venous) 7.51 (7.32-7.43)
[2020-12-11] MEDS ORDERED: Morphine 4 MG/ML VIAL ONE (17:19)
[2020-12-11] MEDS ORDERED: Ondansetron PF 4 MG/2 ML Vial ONE (17:19)
[2020-12-11 17:26] LABS: #Lymphocytes 1.1 thou/uL (1.20-3.40); #Monocytes 0.7 thou/uL (0.11-0.59); #Neutrophils 7.3 thou/uL (1.40-6.50); %Basophils 0.2 % (0.0-1.0); %Eosinophils 0.1 % (0.0-10.0); %Lymphocytes 12.3 % (21.0-51.0); %Monocytes 7.8 % (0.0-10.0); %Neutrophils 79.7 % (42.0-75.0); Hemoglobin 15.4 g/dL (14.0-18.0); Mean Corpuscular HGB CONC 34.3 g/dL (32.0-36.0); Mean Corpuscular Hemoglobin 31.6 pg (27.0-31.0); Mean Platelet Volume 7.1 fL (7.4-10.4); Platelet Count 291 thou/uL (130-400); RBC Distribution Width 12.9 % (11.5-14.5); Red Blood Cell (RBC) Count 4.88 mill/uL (4.70-6.10); White Blood Cell (WBC) Count 9.1 thou/uL (4.8-10.8)
[2020-12-11 17:46] LABS: ALT (SGPT) 21 U/L (8-55); AST (SGOT) 13 U/L (5-34); Albumin 4.8 g/dL (3.5-5.0); Alkaline Phosphatase 93 U/L (40-110); Anion Gap 22 mmol/L (10-20); BUN (Urea Nitrogen) 22 mg/dL (8.9-20.6); Calc. Creatinine Clearance 0 mL/min (70-130); Calcium 10.2 mg/dL (7.8-10.44); Carbon Dioxide 22 mmol/L (22-29); Chloride 99 mmol/L (98-107); Globulin 3.6 g/dL (2.4-3.5); Glucose 335 mg/dL (70-105); Lipase 9 U/L (8-78); Phosphorus 2.2 mg/dL (2.3-4.7); Potassium 3.7 mmol/L (3.5-5.1); Protein, Total 8.4 g/dL (6.0-8.3); Sodium 139 mmol/L (136-145)
[2020-12-11 17:48] LABS: Magnesium 2.2 mg/dL (1.6-2.6)
== END 2020-12-11 19:27 | disposition home or self-care (01) ==
LOC: ERS 15:18
DX: E86.0 Dehydration (principal); I10 Essential (primary) hypertension; E10.9 Type 1 diabetes mellitus without complications; Z79.4 Long term (current) use of insulin; Z79.899 Other long term (current) drug therapy
CPT/HCPCS: 36415; 36416; 71045; 80053; 82010; 82805; 83690; 83735; 84100; 84484; 85025; 93005; 96374; 96375; J2270; J2405

== ENCOUNTER 2020-12-13 15:31 | Emergency (ER) | payer OTHER ==
[2020-12-13 16:35] LABS: #Basophils 0.1 thou/uL (0.0-0.2); #Monocytes 0.7 thou/uL (0.11-0.59); #Neutrophils 6.9 thou/uL (1.40-6.50); %Basophils 0.9 % (0.0-1.0); %Eosinophils 0.2 % (0.0-10.0); %Lymphocytes 20.3 % (21.0-51.0); %Monocytes 6.8 % (0.0-10.0); %Neutrophils 71.7 % (42.0-75.0); Hemoglobin 14.5 g/dL (14.0-18.0); Mean Corpuscular HGB CONC 34.9 g/dL (32.0-36.0); Mean Corpuscular Hemoglobin 31.6 pg (27.0-31.0); Mean Corpuscular Volume 90.5 fL (78.0-98.0); Platelet Count 308 thou/uL (130-400); RBC Distribution Width 12.4 % (11.5-14.5); Red Blood Cell (RBC) Count 4.59 mill/uL (4.70-6.10); White Blood Cell (WBC) Count 9.6 thou/uL (4.8-10.8)
[2020-12-13 17:01] LABS: ALT (SGPT) 19 U/L (8-55); AST (SGOT) 14 U/L (5-34); Albumin 4.4 g/dL (3.5-5.0); Alkaline Phosphatase 83 U/L (40-110); Anion Gap 18 mmol/L (10-20); BUN (Urea Nitrogen) 16 mg/dL (8.9-20.6); Bilirubin, Total 1.4 mg/dL (0.2-1.2); Calc. Creatinine Clearance 0 mL/min (70-130); Calcium 9.4 mg/dL (7.8-10.44); Carbon Dioxide 25 mmol/L (22-29); Chloride 92 mmol/L (98-107); Globulin 3.1 g/dL (2.4-3.5); Glucose 329 mg/dL (70-105); Lipase 16 U/L (8-78); Potassium 3.2 mmol/L (3.5-5.1); Protein, Total 7.5 g/dL (6.0-8.3); Sodium 132 mmol/L (136-145)
[2020-12-13] MEDS ORDERED: Metoclopramide HCl 10 MG/2 ML VIAL ONE (18:26)
== END 2020-12-13 20:10 | disposition home or self-care (01) ==
LOC: ERS 15:31
DX: E10.65 Type 1 diabetes mellitus with hyperglycemia (principal); R11.2 Nausea with vomiting, unspecified; I10 Essential (primary) hypertension; Z79.899 Other long term (current) drug therapy
CPT/HCPCS: 71045; 80053; 82010; 83690; 84484; 85025; 93005; 96365; J2765

== ENCOUNTER 2021-01-09 09:01 | Observation (INO) | payer OTHER ==
[2021-01-09] MEDS ORDERED: Ondansetron PF 4 MG/2 ML Vial ONE (09:55)
[2021-01-09 10:13] LABS: #Lymphocytes 1.7 thou/uL (1.20-3.40); #Monocytes 0.6 thou/uL (0.11-0.59); #Neutrophils 6.6 thou/uL (1.40-6.50); %Basophils 0.2 % (0.0-1.0); %Eosinophils 0.2 % (0.0-10.0); %Neutrophils 73.6 % (42.0-75.0); Hemoglobin 14.6 g/dL (14.0-18.0); Mean Corpuscular Hemoglobin 31.9 pg (27.0-31.0); Mean Corpuscular Volume 91.2 fL (78.0-98.0); Mean Platelet Volume 6.2 fL (7.4-10.4); Platelet Count 328 thou/uL (130-400); RBC Distribution Width 12.5 % (11.5-14.5); Red Blood Cell (RBC) Count 4.57 mill/uL (4.70-6.10)
[2021-01-09 10:31] LABS: Magnesium 1.7 mg/dL (1.6-2.6)
[2021-01-09 10:38] LABS: ALT (SGPT) 30 U/L (8-55); AST (SGOT) 22 U/L (5-34); Albumin 4.6 g/dL (3.5-5.0); Alkaline Phosphatase 81 U/L (40-110); Anion Gap 19 mmol/L (10-20); BUN (Urea Nitrogen) 16 mg/dL (8.9-20.6); Bilirubin, Total 1.3 mg/dL (0.2-1.2); Calc. Creatinine Clearance 0 mL/min (70-130); Calcium 9.9 mg/dL (7.8-10.44); Carbon Dioxide 24 mmol/L (22-29); Chloride 95 mmol/L (98-107); Globulin 3.5 g/dL (2.4-3.5); Glucose 278 mg/dL (70-105); Phosphorus 2.4 mg/dL (2.3-4.7); Potassium 3.7 mmol/L (3.5-5.1); Protein, Total 8.1 g/dL (6.0-8.3); Sodium 134 mmol/L (136-145)
[2021-01-09] MEDS ORDERED: Potassium Chloride 20 MEQ TAB ONE (11:58)
[2021-01-09] MEDS ORDERED: Magnesium 2 GM/50 ML BAG (IN WATER) ONE (11:58)
[2021-01-09 12:01] LABS: Bacteria/HPF None Seen HPF (None Seen); Bilirubin Negative (Negative); Blood, Urine Negative (Negative); Clarity Clear (Clear); Glucose, Urine (Dipstick) Greater than 1000 mg/dL (Negative); Ketone, Urine 60 mg/dL (Negative); Leukocyte Negative Leu/uL (Negative); Nitrite Negative (Negative); Protein, Urine (Dipstick) 30 mg/dL (Neg-Trace); RBC/HPF 0-3 HPF (0-3); Specific Gravity, Urine 1.036 (1.002-1.036); Squamous Epithelial None Seen HPF (0-3); WBC/HPF 0-3 HPF (0-3)
[2021-01-09 12:04] LABS: Actual Bicarbonate (HCO3v) 21 mEq/L (22-28); Analyzer IN Cardio ER; Base Excess 3.7 mEq/L (-2.0 to +3.0); Calcium, Ionized (venous) 1.02 mmol/L (1.16-1.32); Chloride (VBG) 98 mmol/L (98-106); Hemoglobin (Hb) 15.9 g/dL (13.2-17.3); Potassium (VBG) 3.37 mmol/L (3.70-5.30); Sodium 133.2 mmol/L (133-146); pH (venous) 7.68 (7.32-7.43)
[2021-01-09] MEDS ORDERED: NS 0.9% w/ 40 MEQ KCL 1,000 ML IV SCH (13:15)
[2021-01-09] MEDS ORDERED: Metoclopramide HCl 10 MG/2 ML VIAL IVP PRN (15:22)
[2021-01-09 16:24] VITALS: BMI 36.7
[2021-01-09] MEDS ORDERED: Sodium Chloride 0.9% 500 ML IV SCH (17:00)
[2021-01-09] MEDS: Labetalol HCl 100 MG/20 ML VIAL SLOW IVP PRN (18:43)
[2021-01-09] MEDS ORDERED: Dextrose 50% Abboject 50 ML SYRINGE SLOW IVP PRN (18:48)
[2021-01-09] MEDS ORDERED: Dextrose 5% in Water 1,000 ML IV PRN (18:48)
[2021-01-09] MEDS ORDERED: HumaLOG 300 UNITS/3 ML VIAL SC PRN (18:48)
[2021-01-09] MEDS ORDERED: Ondansetron PF 4 MG/2 ML Vial IVP PRN (18:48)
[2021-01-09] MEDS ORDERED: hydrALAZINE 20 MG/ML VIAL SLOW IVP PRN (18:48)
[2021-01-09] MEDS ORDERED: Acetaminophen 325 MG TAB PO PRN (18:48)
[2021-01-09] MEDS ORDERED: HumaLOG 300 UNITS/3 ML VIAL SC SCH (19:15)
[2021-01-09] MEDS: Lactated Ringer's 1,000 ML IV SCH (20:59)
[2021-01-09] MEDS ORDERED: Lantus 1000 UNITS/10 ML VIAL SC SCH (21:00)
[2021-01-09] MEDS ORDERED: Amlodipine 5 MG TAB PO SCH (22:45)
[2021-01-10] MEDS: Lactated Ringer's 1,000 ML IV SCH ×2 (05:19→15:45)
[2021-01-10 06:36] LABS: Anion Gap 15 mmol/L (10-20); BUN (Urea Nitrogen) 10 mg/dL (8.9-20.6); Calc. Creatinine Clearance 188 mL/min (70-130); Calcium 9.1 mg/dL (7.8-10.44); Carbon Dioxide 21 mmol/L (22-29); Chloride 101 mmol/L (98-107); Glucose 220 mg/dL (70-105); Potassium 3.6 mmol/L (3.5-5.1); Sodium 133 mmol/L (136-145)
[2021-01-10 08:32] LABS: Hemoglobin 13.7 g/dL (14.0-18.0); Lymphocytes 21 % (21-51); MDiff Complete? YES; Mean Corpuscular HGB CONC 34.7 g/dL (32.0-36.0); Mean Corpuscular Hemoglobin 32.4 pg (27.0-31.0); Mean Corpuscular Volume 93.3 fL (78.0-98.0); Monocytes 9 % (0-10); Neutrophil 70 % (42-75); Platelet Count 263 thou/uL (130-400); RBC Distribution Width 12.6 % (11.5-14.5); Red Blood Cell (RBC) Count 4.24 mill/uL (4.70-6.10)
[2021-01-10] MEDS ORDERED: Amlodipine 10 MG TAB PO SCH (09:00)
[2021-01-10] MEDS: HumaLOG 300 UNITS/3 ML VIAL SC PRN ×2 (09:18→12:59)
[2021-01-10] MEDS: Labetalol HCl 100 MG/20 ML VIAL SLOW IVP PRN (12:53)
[2021-01-10 14:05] VITALS: BP 149/84; TEMP 97.9
[2021-01-10] MEDS ORDERED: HumaLOG 300 UNITS/3 ML VIAL SC SCH (17:00)
== END 2021-01-10 16:13 | disposition home or self-care (01) ==
LOC: ERS 09:01 → T4-A 14:23
PROVIDERS: ADMIT Internal Medicine; ATTEND Internal Medicine
DX: E10.65 Type 1 diabetes mellitus with hyperglycemia (principal); E87.1 Hypo-osmolality and hyponatremia; E10.43 Type 1 diabetes mellitus with diabetic autonomic (poly)neuropathy; K31.84 Gastroparesis; I10 Essential (primary) hypertension; Z79.4 Long term (current) use of insulin; Z79.899 Other long term (current) drug therapy; Z88.1 Allergy status to other antibiotic agents; Z88.2 Allergy status to sulfonamides; Z91.012 Allergy to eggs; Z91.010 Allergy to peanuts; Z91.018 Allergy to other foods; Z98.890 Other specified postprocedural states
CPT/HCPCS: 36415; 36416; 71045; 76705; 80048; 80053; 81003; 81015; 82010; 82805; 83690; 83735; 84100; 84484; 85025; 93005; 96365; 96367; 96375; 96376; G0378; J0360; J1815; J2405; J2765; J3475; J3480; J7030; J7120

== ENCOUNTER 2021-01-31 15:54 | Inpatient (IN) | payer OTHER ==
[2021-01-31 16:29] LABS: Actual Bicarbonate (HCO3v) 23 mEq/L (22-28); Analyzer IN Cardio ER; Base Excess 0.2 mEq/L (-2.0 to +3.0); Chloride (VBG) 89 mmol/L (98-106); Hemoglobin (Hb) 15.4 g/dL (13.2-17.3); Potassium (VBG) 3.73 mmol/L (3.70-5.30); Sodium 128.4 mmol/L (133-146); pH (venous) 7.48 (7.32-7.43)
[2021-01-31 16:37] LABS: #Basophils 0.1 thou/uL (0.0-0.2); #Lymphocytes 1.4 thou/uL (1.20-3.40); #Monocytes 0.6 thou/uL (0.11-0.59); #Neutrophils 6.2 thou/uL (1.40-6.50); %Basophils 0.7 % (0.0-1.0); %Eosinophils 0.2 % (0.0-10.0); %Lymphocytes 16.6 % (21.0-51.0); %Monocytes 7.2 % (0.0-10.0); %Neutrophils 75.3 % (42.0-75.0); Hemoglobin 14.8 g/dL (14.0-18.0); Mean Corpuscular HGB CONC 34.9 g/dL (32.0-36.0); Mean Corpuscular Hemoglobin 31.8 pg (27.0-31.0); Mean Corpuscular Volume 91.2 fL (78.0-98.0); Mean Platelet Volume 6.4 fL (7.4-10.4); Platelet Count 300 thou/uL (130-400); RBC Distribution Width 12.1 % (11.5-14.5); Red Blood Cell (RBC) Count 4.65 mill/uL (4.70-6.10); White Blood Cell (WBC) Count 8.2 thou/uL (4.8-10.8)
[2021-01-31 16:57] LABS: Lipase 17 U/L (8-78); Phosphorus 3.3 mg/dL (2.3-4.7)
[2021-01-31 16:58] LABS: ALT (SGPT) 23 U/L (8-55); AST (SGOT) 16 U/L (5-34); Albumin 4.7 g/dL (3.5-5.0); Alkaline Phosphatase 78 U/L (40-110); Anion Gap 22 mmol/L (10-20); BUN (Urea Nitrogen) 15 mg/dL (8.9-20.6); Bilirubin, Total 1.2 mg/dL (0.2-1.2); Calc. Creatinine Clearance 0 mL/min (70-130); Calcium 10.1 mg/dL (7.8-10.44); Carbon Dioxide 20 mmol/L (22-29); Chloride 91 mmol/L (98-107); Globulin 3.2 g/dL (2.4-3.5); Glucose 371 mg/dL (70-105); Magnesium 2.1 mg/dL (1.6-2.6); Protein, Total 7.9 g/dL (6.0-8.3); Sodium 129 mmol/L (136-145)
[2021-01-31] MEDS ORDERED: INSULIN REGULAR IN 0.9 % NACL 100 UNIT/100 ML BAG ONE (17:20)
[2021-01-31] MEDS ORDERED: NS 0.9% w/ 40 MEQ KCL 1,000 ML IV SCH (17:30)
[2021-01-31] MEDS ORDERED: Aspirin Chewable 81 MG TAB ONE (17:37)
[2021-01-31] MEDS ORDERED: HUMULIN R 100 UNITS in Sodium Chloride 0.9% 100 ML IVPB SCH (19:15)
[2021-01-31 20:18] LABS: Bilirubin Negative (Negative); Blood, Urine Negative (Negative); Clarity Clear (Clear); Glucose, Urine (Dipstick) Greater than 1000 mg/dL (Negative); Ketone, Urine 100 mg/dL (Negative); Leukocyte Negative Leu/uL (Negative); Nitrite Negative (Negative); Protein, Urine (Dipstick) 10 mg/dL (Neg-Trace); Specific Gravity, Urine 1.045 (1.002-1.036); Urobilinogen Normal mg/dL (Less than 2); pH, Urine 5.5 (5.0-9.0)
[2021-01-31 20:30] LABS: Troponin I Less than 0.010 ng/mL (< 0.028)
[2021-01-31] MEDS: D5 1/2 NS w/20 mEq KCL 1,000 ML IV SCH (20:45)
[2021-01-31] MEDS ORDERED: Acetaminophen 325 MG TAB PO PRN (21:30)
[2021-01-31] MEDS ORDERED: Ondansetron ODT 4 MG TAB SL PRN (21:30)
[2021-01-31] MEDS ORDERED: ADD ELECTROLYTE REPLACEMENT SET TO PROFILE FS SCH (21:45)
[2021-01-31] MEDS ORDERED: Sodium Chloride 0.9% 1,000 ML IV PRN ×4 (21:45)
[2021-01-31] MEDS ORDERED: Dextrose 5 %-0.45 % NaCl 1,000 ML IV PRN (21:45)
[2021-01-31] MEDS ORDERED: Dextrose 50% Abboject 50 ML SYRINGE SLOW IVP PRN (21:45)
[2021-01-31] MEDS ORDERED: Electrolyte Replacement Protocol FS PRN (21:45)
[2021-01-31] MEDS ORDERED: NS 0.9% w/ 20 MEQ KCL 1,000 ML/1,000 ML BAG IV PRN ×2 (21:45)
[2021-01-31] MEDS ORDERED: Dextrose 5% in Water 1,000 ML IV PRN (21:45)
[2021-01-31 21:53] VITALS: BMI 36.9
[2021-01-31] MEDS: Ondansetron PF 4 MG/2 ML Vial IVP PRN (22:04)
[2021-01-31] MEDS: hydrALAZINE 20 MG/ML VIAL SLOW IVP PRN (22:09)
[2021-01-31 22:51] LABS: Anion Gap 16 mmol/L (10-20); BUN (Urea Nitrogen) 13 mg/dL (8.9-20.6); Calc. Creatinine Clearance 191 mL/min (70-130); Calcium 9.2 mg/dL (7.8-10.44); Carbon Dioxide 20 mmol/L (22-29); Chloride 99 mmol/L (98-107); Glucose 200 mg/dL (70-105); Potassium 3.6 mmol/L (3.5-5.1); Sodium 131 mmol/L (136-145)
[2021-01-31 22:58] LABS: Troponin I Less than 0.010 ng/mL (< 0.028)
[2021-01-31] MEDS ORDERED: Labetalol HCl 100 MG/20 ML VIAL SLOW IVP SCH (23:30)
[2021-02-01] MEDS: D5 1/2 NS w/20 mEq KCL 1,000 ML IV PRN ×2 (02:10→05:46)
[2021-02-01] MEDS ORDERED: Labetalol HCl 100 MG/20 ML VIAL SLOW IVP SCH (03:00)
[2021-02-01] MEDS: Ondansetron PF 4 MG/2 ML Vial IVP PRN (03:14)
[2021-02-01 03:38] LABS: #Lymphocytes 1.5 thou/uL (1.20-3.40); #Monocytes 0.7 thou/uL (0.11-0.59); #Neutrophils 5.4 thou/uL (1.40-6.50); %Basophils 0.4 % (0.0-1.0); %Eosinophils 0.6 % (0.0-10.0); %Lymphocytes 19.4 % (21.0-51.0); %Monocytes 8.6 % (0.0-10.0); %Neutrophils 71.1 % (42.0-75.0); Hemoglobin 14.5 g/dL (14.0-18.0); Mean Corpuscular HGB CONC 35.1 g/dL (32.0-36.0); Mean Corpuscular Hemoglobin 32.5 pg (27.0-31.0); Mean Corpuscular Volume 92.6 fL (78.0-98.0); Mean Platelet Volume 6.7 fL (7.4-10.4); Platelet Count 291 thou/uL (130-400); RBC Distribution Width 12.1 % (11.5-14.5); Red Blood Cell (RBC) Count 4.48 mill/uL (4.70-6.10); White Blood Cell (WBC) Count 7.6 thou/uL (4.8-10.8)
[2021-02-01 03:46] LABS: Anion Gap 13 mmol/L (10-20); BUN (Urea Nitrogen) 11 mg/dL (8.9-20.6); Calc. Creatinine Clearance 171 mL/min (70-130); Calcium 9.2 mg/dL (7.8-10.44); Carbon Dioxide 23 mmol/L (22-29); Chloride 97 mmol/L (98-107); Glucose 267 mg/dL (70-105); Potassium 3.2 mmol/L (3.5-5.1); Sodium 130 mmol/L (136-145)
[2021-02-01] MEDS: D5 1/2 NS w/20 mEq KCL 1,000 ML IV SCH (04:45)
[2021-02-01] MEDS ORDERED: Potassium Chloride 20 MEQ TAB PO SCH (07:00)
[2021-02-01] MEDS: Potassium Chloride 20 MEQ in Premix Bag 1 BAG IVPB SCH ×2 (08:08→10:04)
[2021-02-01] MEDS: Enoxaparin Sodium 40 MG/0.4 ML SYRINGE SC SCH (08:37)
[2021-02-01] MEDS: Amlodipine 10 MG TAB PO SCH (08:37)
[2021-02-01] MEDS ORDERED: Lisinopril/Hydrochlorothiazide 10 mg/12.5 mg Tablet PO SCH (09:00)
[2021-02-01] MEDS ORDERED: Dextrose 50% Abboject 50 ML SYRINGE SLOW IVP PRN (09:53)
[2021-02-01] MEDS ORDERED: Dextrose 5% in Water 1,000 ML IV PRN (09:53)
[2021-02-01] MEDS: Gabapentin 100 MG CAP PO SCH (10:03)
[2021-02-01] MEDS: Sodium Chloride 0.9% 1,000 ML IV SCH ×2 (10:05→20:42)
[2021-02-01] MEDS ORDERED: Non-Formulary Item 1 EACH (Insulin Aspart [Novolog] 100 UNIT/ML Vial) SQ SCH (12:00)
[2021-02-01] MEDS: Lantus 1000 UNITS/10 ML VIAL SC SCH (14:16)
[2021-02-01] MEDS: HumaLOG 300 UNITS/3 ML VIAL SC PRN ×2 (14:17→16:50)
[2021-02-01] MEDS: HumaLOG 300 UNITS/3 ML VIAL SC SCH ×2 (14:28→16:49)
[2021-02-01] MEDS: hydrALAZINE 20 MG/ML VIAL SLOW IVP PRN (14:32)
[2021-02-01 14:38] LABS: Anion Gap 17 mmol/L (10-20); BUN (Urea Nitrogen) 8 mg/dL (8.9-20.6); Calc. Creatinine Clearance 158 mL/min (70-130); Calcium 9.3 mg/dL (7.8-10.44); Carbon Dioxide 20 mmol/L (22-29); Chloride 97 mmol/L (98-107); Glucose 294 mg/dL (70-105); Potassium 3.7 mmol/L (3.5-5.1); Sodium 130 mmol/L (136-145)
[2021-02-01] MEDS: Labetalol HCl 100 MG/20 ML VIAL SLOW IVP PRN (15:02)
[2021-02-01] MEDS ORDERED: Ondansetron PF 4 MG/2 ML Vial IVP PRN (20:21)
[2021-02-01] MEDS ORDERED: Lantus 1000 UNITS/10 ML VIAL SC SCH (21:00)
[2021-02-02] MEDS: Labetalol HCl 100 MG/20 ML VIAL SLOW IVP PRN (00:42)
[2021-02-02 05:29] LABS: Anion Gap 16 mmol/L (10-20); BUN (Urea Nitrogen) 7 mg/dL (8.9-20.6); Calc. Creatinine Clearance 179 mL/min (70-130); Calcium 9.8 mg/dL (7.8-10.44); Carbon Dioxide 19 mmol/L (22-29); Chloride 100 mmol/L (98-107); Glucose 174 mg/dL (70-105); Potassium 3.7 mmol/L (3.5-5.1); Sodium 131 mmol/L (136-145)
[2021-02-02] MEDS: Sodium Chloride 0.9% 1,000 ML IV SCH (05:42)
[2021-02-02] MEDS ORDERED: Sodium Chloride 0.9% 500 ML IV SCH (08:15)
[2021-02-02] MEDS: HumaLOG 300 UNITS/3 ML VIAL SC SCH ×2 (08:57→13:26)
[2021-02-02] MEDS: Gabapentin 100 MG CAP PO SCH (08:58)
[2021-02-02] MEDS: Lantus 1000 UNITS/10 ML VIAL SC SCH (08:58)
[2021-02-02] MEDS: Amlodipine 10 MG TAB PO SCH (08:58)
[2021-02-02] MEDS: Enoxaparin Sodium 40 MG/0.4 ML SYRINGE SC SCH (08:59)
[2021-02-02 12:26] LABS: Anion Gap 14 mmol/L (10-20); BUN (Urea Nitrogen) 7 mg/dL (8.9-20.6); Calc. Creatinine Clearance 201 mL/min (70-130); Calcium 9.2 mg/dL (7.8-10.44); Carbon Dioxide 21 mmol/L (22-29); Chloride 103 mmol/L (98-107); Glucose 126 mg/dL (70-105); Potassium 3.5 mmol/L (3.5-5.1); Sodium 134 mmol/L (136-145)
[2021-02-02 16:14] VITALS: BP 157/86; TEMP 98
== END 2021-02-02 17:08 | disposition home or self-care (01) | DRG 639 ==
LOC: ERS 15:54 → CCU 18:14 → 2NO 02-01 15:53
PROVIDERS: ADMIT Internal Medicine; ATTEND Internal Medicine
DX: E10.10 Type 1 diabetes mellitus with ketoacidosis without coma (principal); E86.0 Dehydration; I10 Essential (primary) hypertension; E10.43 Type 1 diabetes mellitus with diabetic autonomic (poly)neuropathy; K31.84 Gastroparesis; K21.9 Gastro-esophageal reflux disease without esophagitis; I16.0 Hypertensive urgency; I08.1 Rheumatic disorders of both mitral and tricuspid valves; Z90.89 Acquired absence of other organs; Z88.1 Allergy status to other antibiotic agents; Z91.012 Allergy to eggs; Z91.010 Allergy to peanuts; Z91.018 Allergy to other foods; Z88.2 Allergy status to sulfonamides; Z79.899 Other long term (current) drug therapy; Z79.4 Long term (current) use of insulin; Z83.3 Family history of diabetes mellitus
CPT/HCPCS: 36415; 36416; 71045; 78452; 80048; 80053; 81003; 82010; 82805; 83690; 83735; 84100; 84484; 85025; 87086; 93005; 93017; 93306; A9500; J0153; J0360; J1650; J1815; J2405; J3480; J3490; J7030; J7050

== ENCOUNTER 2021-03-29 16:15 | Inpatient (IN) | payer OTHER ==
[2021-03-29 18:21] LABS: #Lymphocytes 1.4 thou/uL (1.20-3.40); #Monocytes 0.8 thou/uL (0.11-0.59); #Neutrophils 9.6 thou/uL (1.40-6.50); %Basophils 0.2 % (0.0-1.0); %Eosinophils 0.1 % (0.0-10.0); %Lymphocytes 11.5 % (21.0-51.0); %Monocytes 6.7 % (0.0-10.0); %Neutrophils 81.5 % (42.0-75.0); Hemoglobin 15.6 g/dL (14.0-18.0); Mean Corpuscular HGB CONC 34.3 g/dL (32.0-36.0); Mean Corpuscular Volume 90.4 fL (78.0-98.0); Mean Platelet Volume 6.8 fL (7.4-10.4); Platelet Count 330 thou/uL (130-400); Red Blood Cell (RBC) Count 5.02 mill/uL (4.70-6.10); White Blood Cell (WBC) Count 11.8 thou/uL (4.8-10.8)
[2021-03-29] MEDS ORDERED: Ondansetron PF 4 MG/2 ML Vial ONE ×2 (18:34→20:24)
[2021-03-29 18:38] LABS: Albumin 4.5 g/dL (3.5-5.0)
[2021-03-29 18:39] LABS: Chloride 94 mmol/L (98-107); Potassium 5.4 mmol/L (3.5-5.1); Sodium 131 mmol/L (136-145)
[2021-03-29 18:40] LABS: Calcium 10.5 mg/dL (7.8-10.44)
[2021-03-29 18:41] LABS: Glucose 385 mg/dL (70-105)
[2021-03-29 18:42] LABS: Anion Gap 31 mmol/L (10-20); Bilirubin, Total 1.1 mg/dL (0.2-1.2); Carbon Dioxide 11 mmol/L (22-29)
[2021-03-29 18:43] LABS: Alkaline Phosphatase 137 U/L (40-110)
[2021-03-29 18:44] LABS: Calc. Creatinine Clearance 0 mL/min (70-130)
[2021-03-29 18:45] LABS: BUN (Urea Nitrogen) 28 mg/dL (8.9-20.6)
[2021-03-29 18:46] LABS: AST (SGOT) 31 U/L (5-34)
[2021-03-29 18:47] LABS: ALT (SGPT) 22 U/L (8-55)
[2021-03-29] MEDS ORDERED: Metoclopramide HCl 10 MG/2 ML VIAL ONE (18:53)
[2021-03-29 19:04] LABS: Actual Bicarbonate (HCO3v) 23 mEq/L (22-28); Analyzer IN Cardio ER; Base Excess 0.5 mEq/L (-2.0 to +3.0); Calcium, Ionized (venous) 1.13 mmol/L (1.16-1.32); Chloride (VBG) 90 mmol/L (98-106); Hemoglobin (Hb) 16.1 g/dL (13.2-17.3); Potassium (VBG) 3.82 mmol/L (3.70-5.30); Sodium 134.6 mmol/L (133-146); pH (venous) 7.49 (7.32-7.43)
[2021-03-29 19:42] LABS: Globulin 7.5 g/dL (2.4-3.5)
[2021-03-29] MEDS ORDERED: INSULIN REGULAR IN 0.9 % NACL 100 UNIT/100 ML BAG ONE (20:06)
[2021-03-29 20:15] LABS: Bilirubin Negative (Negative); Blood, Urine Negative (Negative); Clarity Clear (Clear); Glucose, Urine (Dipstick) Greater than 1000 mg/dL (Negative); Ketone, Urine 150 mg/dL (Negative); Leukocyte Negative Leu/uL (Negative); Nitrite Negative (Negative); Protein, Urine (Dipstick) 10 mg/dL (Neg-Trace); Specific Gravity, Urine 1.041 (1.002-1.036); Urobilinogen Normal mg/dL (Less than 2)
[2021-03-29 21:31] LABS: Magnesium 2.4 mg/dL (1.6-2.6)
[2021-03-29] MEDS ORDERED: NS 0.9% w/ 20 MEQ KCL 1,000 ML ONE (22:25)
[2021-03-29] MEDS ORDERED: Dextrose 5 %-0.45 % NaCl 1,000 ML IV PRN (22:49)
[2021-03-29] MEDS ORDERED: Acetaminophen 325 MG TAB PO PRN (22:49)
[2021-03-29] MEDS ORDERED: NS 0.9% w/ 20 MEQ KCL 1,000 ML IV PRN (22:49)
[2021-03-29] MEDS ORDERED: Sodium Chloride 0.9% 1,000 ML IV PRN ×4 (22:49)
[2021-03-29] MEDS ORDERED: D5 1/2 NS w/20 mEq KCL 1,000 ML IV PRN (22:49)
[2021-03-29] MEDS ORDERED: Electrolyte Replacement Protocol 1 EACH IVPB ONE (22:49)
[2021-03-29] MEDS ORDERED: Ondansetron PF 4 MG/2 ML Vial IVP PRN (22:49)
[2021-03-29] MEDS ORDERED: hydrALAZINE 20 MG/ML VIAL SLOW IVP PRN (22:52)
[2021-03-29] MEDS ORDERED: HUMULIN R 100 UNITS in Sodium Chloride 0.9% 100 ML IVPB SCH (23:00)
[2021-03-30 00:02] LABS: Anion Gap 21 mmol/L (10-20); BUN (Urea Nitrogen) 24 mg/dL (8.9-20.6); Calc. Creatinine Clearance 0 mL/min (70-130); Calcium 9.7 mg/dL (7.8-10.44); Carbon Dioxide 21 mmol/L (22-29); Chloride 99 mmol/L (98-107); Glucose 285 mg/dL (70-105); Potassium 3.9 mmol/L (3.5-5.1); Sodium 137 mmol/L (136-145)
[2021-03-30 00:06] LABS: Troponin I Less than 0.010 ng/mL (< 0.028)
[2021-03-30] MEDS: NS 0.9% w/ 20 MEQ KCL 1,000 ML IV PRN ×2 (01:36→03:00)
[2021-03-30 04:05] LABS: #Basophils 0.1 thou/uL (0.0-0.2); #Lymphocytes 1.6 thou/uL (1.20-3.40); #Monocytes 1.2 thou/uL (0.11-0.59); #Neutrophils 8.8 thou/uL (1.40-6.50); %Basophils 0.5 % (0.0-1.0); %Eosinophils 0.1 % (0.0-10.0); %Lymphocytes 13.8 % (21.0-51.0); %Monocytes 10.2 % (0.0-10.0); %Neutrophils 75.5 % (42.0-75.0); Hemoglobin 14.1 g/dL (14.0-18.0); Mean Corpuscular Hemoglobin 31.1 pg (27.0-31.0); Mean Corpuscular Volume 91.4 fL (78.0-98.0); Mean Platelet Volume 6.8 fL (7.4-10.4); Platelet Count 304 thou/uL (130-400); Red Blood Cell (RBC) Count 4.55 mill/uL (4.70-6.10); White Blood Cell (WBC) Count 11.7 thou/uL (4.8-10.8)
[2021-03-30 04:48] LABS: Anion Gap 16 mmol/L (10-20); BUN (Urea Nitrogen) 21 mg/dL (8.9-20.6); Calc. Creatinine Clearance 0 mL/min (70-130); Carbon Dioxide 22 mmol/L (22-29); Chloride 102 mmol/L (98-107); Glucose 244 mg/dL (70-105); Magnesium 2.5 mg/dL (1.6-2.6); Potassium 3.8 mmol/L (3.5-5.1); Sodium 136 mmol/L (136-145)
[2021-03-30 05:13] LABS: Troponin I Less than 0.010 ng/mL (< 0.028)
[2021-03-30 05:56] LABS: Hemoglobin A1c 10.2 % (4.0-6.0)
[2021-03-30 07:09] LABS: Troponin I Less than 0.010 ng/mL (< 0.028)
[2021-03-30 07:11] LABS: Anion Gap 14 mmol/L (10-20); BUN (Urea Nitrogen) 18 mg/dL (8.9-20.6); Calc. Creatinine Clearance 0 mL/min (70-130); Calcium 8.5 mg/dL (7.8-10.44); Carbon Dioxide 22 mmol/L (22-29); Chloride 105 mmol/L (98-107); Glucose 196 mg/dL (70-105); Potassium 3.7 mmol/L (3.5-5.1); Sodium 137 mmol/L (136-145)
[2021-03-30 08:01] VITALS: BMI 38.3
[2021-03-30] MEDS ORDERED: Dextrose 5% in Water 1,000 ML IV PRN (08:38)
[2021-03-30] MEDS ORDERED: Dextrose 50% Abboject 50 ML SYRINGE SLOW IVP PRN (08:38)
[2021-03-30] MEDS ORDERED: Amlodipine 10 MG TAB PO SCH ×2 (09:00)
[2021-03-30] MEDS: Enoxaparin Sodium 40 MG/0.4 ML SYRINGE SC SCH (09:29)
[2021-03-30] MEDS: Colchicine 0.6 MG TAB PO SCH ×2 (09:56→22:57)
[2021-03-30] MEDS: Lantus 1000 UNITS/10 ML VIAL SC SCH ×2 (09:57→22:57)
[2021-03-30] MEDS ORDERED: Lisinopril 10 MG TAB PO SCH (10:00)
[2021-03-30] MEDS ORDERED: Ketorolac Tromethamine 30 MG/ML VIAL IVP SCH (10:00)
[2021-03-30] MEDS: HumaLOG 300 UNITS/3 ML VIAL SC PRN ×3 (10:49→22:57)
[2021-03-30 18:49] LABS: SARS-CoV-2 PCR by NAA Not Detected (NotDetected)
[2021-03-30] MEDS: Simvastatin 10 MG TAB PO SCH (22:57)
[2021-03-30] MEDS: Ibuprofen 200 MG TAB PO SCH (22:57)
[2021-03-31] MEDS: HumaLOG 300 UNITS/3 ML VIAL SC PRN ×2 (06:43→20:37)
[2021-03-31] MEDS: Ibuprofen 200 MG TAB PO SCH ×3 (08:36→20:37)
[2021-03-31] MEDS: Lisinopril 20 MG TAB PO SCH (08:37)
[2021-03-31] MEDS: Colchicine 0.6 MG TAB PO SCH ×2 (08:37→20:37)
[2021-03-31] MEDS: Enoxaparin Sodium 40 MG/0.4 ML SYRINGE SC SCH (08:37)
[2021-03-31] MEDS: Lantus 1000 UNITS/10 ML VIAL SC SCH ×2 (08:38→20:37)
[2021-03-31] MEDS ORDERED: NIFEdipine XL 60 MG TAB PO SCH ×2 (09:00→09:45)
[2021-03-31 10:06] LABS: #Basophils 0.1 thou/uL (0.0-0.2); #Monocytes 0.7 thou/uL (0.11-0.59); #Neutrophils 6.1 thou/uL (1.40-6.50); %Basophils 0.6 % (0.0-1.0); %Eosinophils 0.4 % (0.0-10.0); %Lymphocytes 22.4 % (21.0-51.0); %Monocytes 8.3 % (0.0-10.0); %Neutrophils 68.2 % (42.0-75.0); Hemoglobin 14.2 g/dL (14.0-18.0); Mean Corpuscular HGB CONC 33.8 g/dL (32.0-36.0); Mean Corpuscular Hemoglobin 31.4 pg (27.0-31.0); Mean Corpuscular Volume 92.9 fL (78.0-98.0); Platelet Count 280 thou/uL (130-400); RBC Distribution Width 11.8 % (11.5-14.5); Red Blood Cell (RBC) Count 4.52 mill/uL (4.70-6.10); White Blood Cell (WBC) Count 8.9 thou/uL (4.8-10.8)
[2021-03-31] MEDS: NIFEdipine XL 60 MG TAB PO SCH (10:12)
[2021-03-31 10:28] LABS: Anion Gap 15 mmol/L (10-20); BUN (Urea Nitrogen) 13 mg/dL (8.9-20.6); Calc. Creatinine Clearance 196 mL/min (70-130); Carbon Dioxide 21 mmol/L (22-29); Cardiac Risk 4.1 (Less than 4.5); Chloride 102 mmol/L (98-107); Cholesterol 181 mg/dl (< 200 Desired); Glucose 195 mg/dL (70-105); HDL Cholesterol 44 mg/dL (>60 Neg Risk); LDL Cholesterol, Calculated 121 mg/dL; Magnesium 2.3 mg/dL (1.6-2.6); Potassium 3.9 mmol/L (3.5-5.1); Sodium 134 mmol/L (136-145); Triglycerides 81 mg/dL (Less than 150)
[2021-03-31] MEDS: Simvastatin 10 MG TAB PO SCH (20:37)
[2021-04-01] MEDS: HumaLOG 300 UNITS/3 ML VIAL SC PRN ×2 (05:08→12:58)
[2021-04-01 06:48] LABS: #Eosinphils 0.2 thou/uL (0.0-0.7); #Lymphocytes 2.3 thou/uL (1.20-3.40); #Monocytes 0.5 thou/uL (0.11-0.59); #Neutrophils 3.7 thou/uL (1.40-6.50); %Basophils 0.5 % (0.0-1.0); %Eosinophils 2.7 % (0.0-10.0); %Lymphocytes 33.5 % (21.0-51.0); %Monocytes 7.8 % (0.0-10.0); %Neutrophils 55.4 % (42.0-75.0); Hemoglobin 14.5 g/dL (14.0-18.0); Mean Corpuscular HGB CONC 33.4 g/dL (32.0-36.0); Mean Corpuscular Hemoglobin 30.7 pg (27.0-31.0); Mean Corpuscular Volume 91.7 fL (78.0-98.0); Mean Platelet Volume 6.7 fL (7.4-10.4); Platelet Count 259 thou/uL (130-400); RBC Distribution Width 11.9 % (11.5-14.5); Red Blood Cell (RBC) Count 4.72 mill/uL (4.70-6.10); White Blood Cell (WBC) Count 6.7 thou/uL (4.8-10.8)
[2021-04-01 07:07] LABS: Anion Gap 10 mmol/L (10-20); BUN (Urea Nitrogen) 14 mg/dL (8.9-20.6); Calc. Creatinine Clearance 183 mL/min (70-130); Calcium 8.7 mg/dL (7.8-10.44); Carbon Dioxide 28 mmol/L (22-29); Chloride 101 mmol/L (98-107); Glucose 256 mg/dL (70-105); Magnesium 2.2 mg/dL (1.6-2.6); Potassium 3.2 mmol/L (3.5-5.1); Sodium 136 mmol/L (136-145)
[2021-04-01] MEDS: Enoxaparin Sodium 40 MG/0.4 ML SYRINGE SC SCH (07:57)
[2021-04-01] MEDS: NIFEdipine XL 60 MG TAB PO SCH (07:58)
[2021-04-01] MEDS: Lisinopril 20 MG TAB PO SCH (07:59)
[2021-04-01] MEDS: Ibuprofen 200 MG TAB PO SCH (07:59)
[2021-04-01] MEDS: Lantus 1000 UNITS/10 ML VIAL SC SCH (07:59)
[2021-04-01] MEDS: Colchicine 0.6 MG TAB PO SCH (07:59)
[2021-04-01] MEDS ORDERED: Lisinopril 20 MG TAB PO SCH (09:00)
[2021-04-01] MEDS ORDERED: NIFEdipine XL 60 MG TAB PO SCH (09:00)
[2021-04-01] MEDS ORDERED: Potassium Chloride 20 MEQ TAB PO SCH (10:45)
[2021-04-01 12:24] VITALS: BP 163/102; TEMP 97.5
== END 2021-04-01 13:31 | disposition home or self-care (01) | DRG 637 ==
LOC: ERS 16:15 → IMCU/EMU 20:40 → T4-B 03-30 17:58
PROVIDERS: ADMIT Internal Medicine; ATTEND Internal Medicine
DX: E10.10 Type 1 diabetes mellitus with ketoacidosis without coma (principal); J96.01 Acute respiratory failure with hypoxia; I50.32 Chronic diastolic (congestive) heart failure; N17.9 Acute kidney failure, unspecified; K21.9 Gastro-esophageal reflux disease without esophagitis; E87.5 Hyperkalemia; D72.829 Elevated white blood cell count, unspecified; I11.0 Hypertensive heart disease with heart failure; Z20.822 Contact with and (suspected) exposure to COVID-19; E78.00 Pure hypercholesterolemia, unspecified; E66.9 Obesity, unspecified; R07.89 Other chest pain; Z88.2 Allergy status to sulfonamides; Z91.012 Allergy to eggs; Z68.38 Body mass index [BMI] 38.0-38.9, adult; Z91.010 Allergy to peanuts; Z91.018 Allergy to other foods; Z79.4 Long term (current) use of insulin; Z79.899 Other long term (current) drug therapy; Z90.49 Acquired absence of other specified parts of digestive tract
CPT/HCPCS: 36415; 36416; 80048; 80053; 80061; 81003; 82010; 82805; 83036; 83735; 83880; 83930; 84484; 85025; 85379; 93005; J0360; J1650; J1815; J1885; J2405; J2765; J3480; U0003; U0005

== ENCOUNTER 2021-04-14 08:29 | Inpatient (IN) | payer OTHER ==
[2021-04-14] MEDS ORDERED: Metoclopramide HCl 10 MG/2 ML VIAL ONE (08:59)
[2021-04-14 10:18] LABS: #Lymphocytes 0.7 thou/uL (1.20-3.40); #Monocytes 0.3 thou/uL (0.11-0.59); #Neutrophils 2.4 thou/uL (1.40-6.50); %Basophils 0.4 % (0.0-1.0); %Eosinophils 0.4 % (0.0-10.0); %Lymphocytes 20.5 % (21.0-51.0); %Monocytes 8.8 % (0.0-10.0); Mean Corpuscular HGB CONC 35.2 g/dL (32.0-36.0); Mean Corpuscular Hemoglobin 32.7 pg (27.0-31.0); Mean Corpuscular Volume 92.9 fL (78.0-98.0); Mean Platelet Volume 6.2 fL (7.4-10.4); RBC Distribution Width 11.4 % (11.5-14.5)
[2021-04-14 10:44] LABS: Albumin 1.7 g/dL (3.5-5.0); BUN (Urea Nitrogen) 5 mg/dL (8.9-20.6); Calc. Creatinine Clearance 0 mL/min (70-130)
[2021-04-14 11:06] LABS: RBC Morphology Normal
[2021-04-14 11:52] LABS: Analyzer IN Cardio ER; Calcium, Ionized (venous) 0.61 mmol/L (1.16-1.32); Chloride (VBG) 124 mmol/L (98-106); Hemoglobin (Hb) 6.4 g/dL (13.2-17.3); Sodium 137.2 mmol/L (133-146); pH (venous) 7.36 (7.32-7.43)
[2021-04-14 11:54] LABS: Actual Bicarbonate (HCO3v) 8 mEq/L (22-28)
[2021-04-14 11:57] LABS: Red Blood Cell (RBC) Count 2.71 mill/uL (4.70-6.10); White Blood Cell (WBC) Count 4.5 thou/uL (4.8-10.8)
[2021-04-14 11:58] LABS: Hemoglobin 8.6 g/dL (14.0-18.0); Platelet Count 198 thou/uL (130-400)
[2021-04-14 12:05] LABS: Carbon Dioxide 13 mmol/L (22-29)
[2021-04-14 12:09] LABS: Magnesium 1.1 mg/dL (1.6-2.6)
[2021-04-14 12:25] LABS: Calcium 5.2 mg/dL (7.8-10.44); Potassium 2.3 mmol/L (3.5-5.1)
[2021-04-14 12:26] LABS: Anion Gap 12 mmol/L (10-20); Chloride 114 mmol/L (98-107); Sodium 137 mmol/L (136-145)
[2021-04-14 12:27] LABS: Glucose 194 mg/dL (70-105)
[2021-04-14 12:28] LABS: Bilirubin, Total 0.5 mg/dL (0.2-1.2); Protein, Total 4.2 g/dL (6.0-8.3)
[2021-04-14 12:29] LABS: AST (SGOT) 7 U/L (5-34); Alkaline Phosphatase 42 U/L (40-110); Globulin 1.8 g/dL (2.4-3.5)
[2021-04-14 12:30] LABS: ALT (SGPT) 9 U/L (8-55)
[2021-04-14] MEDS ORDERED: Ondansetron PF 4 MG/2 ML Vial ONE (12:46)
[2021-04-14] MEDS ORDERED: Ondansetron PF 4 MG/2 ML Vial IVP PRN (13:52)
[2021-04-14] MEDS ORDERED: Morphine 4 MG/ML VIAL SLOW IVP PRN (13:54)
[2021-04-14] MEDS ORDERED: Dextrose 5% in Water 1,000 ML IV PRN (14:00)
[2021-04-14] MEDS ORDERED: Pantoprazole 40 MG VIAL IVP SCH (14:00)
[2021-04-14] MEDS ORDERED: Scopolamine 1.5 mg/72 hour Patch TD SCH (14:00)
[2021-04-14] MEDS ORDERED: Dextrose 50% Abboject 50 ML SYRINGE SLOW IVP PRN (14:00)
[2021-04-14] MEDS ORDERED: Calcium Gluc 4.6 MEQ/10 ML (100 MG/ML) ONE (14:01)
[2021-04-14] MEDS ORDERED: Magnesium 2 GM/50 ML BAG (IN WATER) ONE (14:01)
[2021-04-14] MEDS ORDERED: Potassium Chloride 20 MEQ/100 ML PREMIX BAG ONE (14:01)
[2021-04-14] MEDS ORDERED: NIFEdipine XL 60 MG TAB PO SCH (14:30)
[2021-04-14] MEDS ORDERED: Metoclopramide HCl 10 MG/2 ML VIAL IVP PRN (14:30)
[2021-04-14] MEDS ORDERED: Lisinopril 20 MG TAB PO SCH (14:30)
[2021-04-14] MEDS: hydrALAZINE 20 MG/ML VIAL SLOW IVP PRN (16:05)
[2021-04-14] MEDS: Potassium Chloride 20 MEQ in Premix Bag 1 BAG IVPB SCH ×2 (16:55→16:56)
[2021-04-14] MEDS ORDERED: NIFEdipine XL 30 MG TAB PO SCH (17:15)
[2021-04-14] MEDS ORDERED: Isosorbide Dinitrate 20 MG TAB PO SCH (17:15)
[2021-04-14] MEDS: 1/2 NS w/KCL 20 mEq 1,000 ML IV SCH ×2 (17:20→21:33)
[2021-04-14 17:30] VITALS: BMI 38.3
[2021-04-14] MEDS ORDERED: HumaLOG 300 UNITS/3 ML VIAL SC PRN (21:25)
[2021-04-14 22:12] LABS: SARS-CoV-2 PCR by NAA Not Detected (NotDetected)
[2021-04-15] MEDS: 1/2 NS w/KCL 20 mEq 1,000 ML IV SCH ×3 (04:22→18:46)
[2021-04-15] MEDS: hydrALAZINE 20 MG/ML VIAL SLOW IVP PRN ×2 (04:27→18:00)
[2021-04-15] MEDS: HumaLOG 300 UNITS/3 ML VIAL SC PRN ×3 (06:09→17:41)
[2021-04-15 08:38] LABS: Anion Gap 17 mmol/L (10-20); BUN (Urea Nitrogen) 6 mg/dL (8.9-20.6); Calc. Creatinine Clearance 172 mL/min (70-130); Calcium 8.7 mg/dL (7.8-10.44); Carbon Dioxide 17 mmol/L (22-29); Chloride 98 mmol/L (98-107); Glucose 271 mg/dL (70-105); Potassium 4.4 mmol/L (3.5-5.1); Sodium 128 mmol/L (136-145)
[2021-04-15 08:53] LABS: #Lymphocytes 0.9 thou/uL (1.20-3.40); #Monocytes 0.4 thou/uL (0.11-0.59); %Basophils 0.1 % (0.0-1.0); %Eosinophils 0.2 % (0.0-10.0); %Lymphocytes 9.4 % (21.0-51.0); %Monocytes 4.7 % (0.0-10.0); %Neutrophils 85.6 % (42.0-75.0); Hemoglobin 14.6 g/dL (14.0-18.0); Mean Corpuscular HGB CONC 33.7 g/dL (32.0-36.0); Mean Corpuscular Hemoglobin 31.1 pg (27.0-31.0); Mean Corpuscular Volume 92.2 fL (78.0-98.0); Mean Platelet Volume 6.7 fL (7.4-10.4); Platelet Count 301 thou/uL (130-400); RBC Distribution Width 11.9 % (11.5-14.5); Red Blood Cell (RBC) Count 4.69 mill/uL (4.70-6.10); White Blood Cell (WBC) Count 9.4 thou/uL (4.8-10.8)
[2021-04-15] MEDS ORDERED: NIFEdipine XL 60 MG TAB PO SCH ×2 (09:00)
[2021-04-15] MEDS ORDERED: Lisinopril 20 MG TAB PO SCH (09:00)
[2021-04-15] MEDS ORDERED: Non-Formulary Item 1 EACH (Omeprazole [Omeprazole] 40 MG Capsule.Dr) PO SCH (09:00)
[2021-04-15] MEDS ORDERED: Pantoprazole 40 MG VIAL IVP SCH (09:00)
[2021-04-15] MEDS: Enoxaparin Sodium 40 MG/0.4 ML SYRINGE SC SCH (10:09)
[2021-04-15] MEDS: Lisinopril 20 MG TAB PO SCH (10:11)
[2021-04-15] MEDS: Gabapentin 100 MG CAP PO SCH (10:16)
[2021-04-15] MEDS: Lantus 1000 UNITS/10 ML VIAL SC SCH (10:43)
[2021-04-15 11:16] LABS: Bacteria/HPF None Seen HPF (None Seen); Bilirubin Negative (Negative); Blood, Urine Negative (Negative); Clarity Clear (Clear); Glucose, Urine (Dipstick) Greater than 1000 mg/dL (Negative); Ketone, Urine 60 mg/dL (Negative); Leukocyte Negative Leu/uL (Negative); Nitrite Negative (Negative); Protein, Urine (Dipstick) Negative (Neg-Trace); RBC/HPF 0-3 HPF (0-3); Specific Gravity, Urine 1.015 (1.002-1.036); Squamous Epithelial 0-3 HPF (0-3); Urobilinogen Normal mg/dL (Less than 2); WBC/HPF 0-3 HPF (0-3)
[2021-04-15 11:27] LABS: Amphetamine Not Detected (NotDetected); Barbiturates Screen Not Detected (NotDetected); Benzodiazepine Screen Not Detected (NotDetected); Cocaine Metabolite Screen Not Detected (NotDetected); Methadone Not Detected (NotDetected); Methamphetamine Not Detected (NotDetected); Opiate Screen Not Detected (NotDetected); Oxycodone Screen Not Detected (NotDetected); Phencyclidine (PCP) Not Detected (NotDetected); THC/Cannabinoid Screen Not Detected (NotDetected); Tricyclic Screen Not Detected (NotDetected)
[2021-04-15] MEDS ORDERED: Non-Formulary Item 1 EACH (Insulin Aspart [Novolog] 100 UNIT/ML Vial) SQ SCH (12:00)
[2021-04-15] MEDS: HumaLOG 300 UNITS/3 ML VIAL SC SCH ×2 (12:51→17:40)
[2021-04-15] MEDS ORDERED: Ondansetron PF 4 MG/2 ML Vial IVP PRN (16:15)
[2021-04-15] MEDS: Sodium Chloride 0.9% 1,000 ML IV SCH (17:22)
[2021-04-15] MEDS: Metoclopramide HCl 10 MG/2 ML VIAL IVP SCH ×2 (17:29→23:18)
[2021-04-15 17:49] LABS: Anion Gap 12 mmol/L (10-20); BUN (Urea Nitrogen) 5 mg/dL (8.9-20.6); Calc. Creatinine Clearance 181 mL/min (70-130); Calcium 8.9 mg/dL (7.8-10.44); Carbon Dioxide 24 mmol/L (22-29); Chloride 97 mmol/L (98-107); Glucose 196 mg/dL (70-105); Potassium 3.9 mmol/L (3.5-5.1); Sodium 129 mmol/L (136-145)
[2021-04-15] MEDS ORDERED: Lantus 1000 UNITS/10 ML VIAL SC SCH (21:00)
[2021-04-16] MEDS: Sodium Chloride 0.9% 1,000 ML IV SCH ×2 (03:03→13:04)
[2021-04-16] MEDS: Metoclopramide HCl 10 MG/2 ML VIAL IVP SCH (05:47)
[2021-04-16 08:07] LABS: Anion Gap 16 mmol/L (10-20); BUN (Urea Nitrogen) 4 mg/dL (8.9-20.6); Calc. Creatinine Clearance 194 mL/min (70-130); Calcium 8.8 mg/dL (7.8-10.44); Carbon Dioxide 20 mmol/L (22-29); Chloride 101 mmol/L (98-107); Glucose 110 mg/dL (70-105); Potassium 3.8 mmol/L (3.5-5.1); Sodium 133 mmol/L (136-145)
[2021-04-16] MEDS: Enoxaparin Sodium 40 MG/0.4 ML SYRINGE SC SCH (08:26)
[2021-04-16] MEDS: Lisinopril 20 MG TAB PO SCH (08:27)
[2021-04-16] MEDS: Gabapentin 100 MG CAP PO SCH (08:28)
[2021-04-16] MEDS: Lantus 1000 UNITS/10 ML VIAL SC SCH (08:29)
[2021-04-16] MEDS: HumaLOG 300 UNITS/3 ML VIAL SC SCH ×2 (08:36→13:02)
[2021-04-16] MEDS ORDERED: NIFEdipine XL 90 MG TAB PO SCH (09:00)
[2021-04-16 12:59] VITALS: BP 140/89; TEMP 98.2
== END 2021-04-16 16:00 | disposition home or self-care (01) | DRG 74 ==
LOC: ERS 08:29 → 2NO 14:52 → T4-B 04-15 18:43
PROVIDERS: ADMIT Internal Medicine; ATTEND Internal Medicine
DX: E10.43 Type 1 diabetes mellitus with diabetic autonomic (poly)neuropathy (principal); I50.32 Chronic diastolic (congestive) heart failure; E10.10 Type 1 diabetes mellitus with ketoacidosis without coma; Z20.822 Contact with and (suspected) exposure to COVID-19; K31.84 Gastroparesis; E87.6 Hypokalemia; E83.42 Hypomagnesemia; E83.51 Hypocalcemia; I16.0 Hypertensive urgency; I11.0 Hypertensive heart disease with heart failure; Z88.2 Allergy status to sulfonamides; Z88.1 Allergy status to other antibiotic agents; Z91.010 Allergy to peanuts; Z91.018 Allergy to other foods; Z79.4 Long term (current) use of insulin; Z79.899 Other long term (current) drug therapy
CPT/HCPCS: 36415; 36416; 71045; 80048; 80053; 80306; 81001; 82010; 82805; 83735; 84484; 85025; 93005; 94760; 96365; 96366; 96367; 96375; J0360; J0610; J1650; J1815; J2405; J2765; J3475; J3480; J7050; U0003; U0005

== ENCOUNTER 2021-05-30 07:16 | Emergency (ER) | payer OTHER ==
[2021-05-30 07:58] LABS: Hemoglobin 15.6 g/dL (14.0-18.0); Mean Corpuscular HGB CONC 33.9 g/dL (32.0-36.0); Mean Corpuscular Hemoglobin 31.4 pg (27.0-31.0); Mean Corpuscular Volume 92.5 fL (78.0-98.0); Mean Platelet Volume 6.5 fL (7.4-10.4); Platelet Count 303 thou/uL (130-400); RBC Distribution Width 11.7 % (11.5-14.5); Red Blood Cell (RBC) Count 4.96 mill/uL (4.70-6.10); White Blood Cell (WBC) Count 7.2 thou/uL (4.8-10.8)
[2021-05-30 08:01] LABS: Actual Bicarbonate (HCO3v) 25 mEq/L (22-28); Analyzer IN Cardio ER; Calcium, Ionized (venous) 1.14 mmol/L (1.16-1.32); Chloride (VBG) 92 mmol/L (98-106); Hemoglobin (Hb) 15.8 g/dL (13.2-17.3); Potassium (VBG) 3.35 mmol/L (3.70-5.30); Sodium 130.8 mmol/L (133-146); pH (venous) 7.51 (7.32-7.43)
[2021-05-30] MEDS ORDERED: Metoclopramide HCl 10 MG/2 ML VIAL ONE (08:01)
[2021-05-30] MEDS ORDERED: diphenhydrAMINE 50 MG/ML VIAL ONE (08:01)
[2021-05-30 08:17] LABS: ALT (SGPT) 16 U/L (8-55); AST (SGOT) 13 U/L (5-34); Albumin 4.7 g/dL (3.5-5.0); Alkaline Phosphatase 74 U/L (40-110); Anion Gap 17 mmol/L (10-20); BUN (Urea Nitrogen) 7 mg/dL (8.9-20.6); Bilirubin, Total 0.9 mg/dL (0.2-1.2); Calc. Creatinine Clearance 0 mL/min (70-130); Calcium 9.9 mg/dL (7.8-10.44); Carbon Dioxide 24 mmol/L (22-29); Chloride 92 mmol/L (98-107); Globulin 3.5 g/dL (2.4-3.5); Glucose 206 mg/dL (70-105); Lipase 23 U/L (8-78); Magnesium 1.8 mg/dL (1.6-2.6); Potassium 3.2 mmol/L (3.5-5.1); Protein, Total 8.2 g/dL (6.0-8.3); Sodium 130 mmol/L (136-145)
[2021-05-30 08:23] LABS: Band 1 % (5-11); Lymphocytes 21 % (21-51); MDiff Complete? YES; Monocytes 14 % (0-10); Neutrophil 58 % (42-75); Platelet Morphology Comment Appears Adequate; Polychromasia SLIGHT = 2-3 cells (100X) (0-2/hpf); Reactive Lymphocytes 6 % (0-10)
== END 2021-05-30 09:43 | disposition home or self-care (01) ==
LOC: ERS 07:16
DX: E86.0 Dehydration (principal); E10.43 Type 1 diabetes mellitus with diabetic autonomic (poly)neuropathy; K31.84 Gastroparesis; I10 Essential (primary) hypertension; Z79.899 Other long term (current) drug therapy; Z79.4 Long term (current) use of insulin
CPT/HCPCS: 36415; 36416; 80053; 82805; 83690; 83735; 85025; 93005; 96365; 96375; J1200; J2765